=== PATIENT | female | born 1965 | race African-American/Black ===

== ENCOUNTER 2018-07-28 07:44 | Day surgery (SDC) | payer OTHER | END 2018-07-28 09:35 | disposition home or self-care (01) | LOC: JASU-SURG 07:44 ==

== ENCOUNTER 2020-09-23 16:38 | Inpatient (IN) | payer OTHER ==
[2020-09-23] MEDS ORDERED: SODIUM CHLORIDE 1,000 ML IV STA (19:03)
[2020-09-23] MEDS ORDERED: morphine CARPU-JECT 4 MG/1 ML DISP.SYRIN IVPUSH ONE (19:03)
[2020-09-23] MEDS ORDERED: ONDANSETRON 4 MG/2 ML VIAL IVPUSH ONE (19:03)
[2020-09-23] MEDS ORDERED: ONDANSETRON 4 MG/2 ML VIAL ONE (20:36)
[2020-09-23] MEDS ORDERED: morphine SULFATE 4 MG/ML VIAL ONE (20:36)
[2020-09-23 21:18] LABS: BASO % 0.9 % (0-2.0); EOS % 2.4 % (0-4.5); HEMATOCRIT 39.5 % (32.4-45.2); LYMPH % 38.5 % (8-40); MCH 28.7 pg (25.7-33.7); MCHC 32.8 g/dl (32.0-36.0); MEAN CELL VOLUME 87.4 fl (80-96); MEAN PLT VOLUME 9.6 fl (7.5-11.1); NEUT % 49.2 % (42.8-82.8); PLATELET COUNT 265 10^3/uL (134-434); RBC 4.52 M/mm3 (3.60-5.2); RDW 15.2 % (11.6-15.6); WHITE BLOOD COUNT 9.1 K/mm3 (4.0-10.0)
[2020-09-23 21:34] LABS: CHLORIDE 109 mmol/L (98-107); SODIUM 137 mmol/L (136-145)
[2020-09-23 21:38] LABS: ALBUMIN 3.8 g/dl (3.4-5.0); BLOOD UREA NITROGEN 12.6 mg/dL (7-18); CALCIUM 8.8 mg/dL (8.5-10.1); CO2 22 mmol/L (21-32); GLUCOSE,RANDOM 108 mg/dL (74-106); LIPASE 45 U/L (73-393); MAGNESIUM 2.2 mg/dL (1.8-2.4)
[2020-09-23 21:41] LABS: SGOT/AST 52 U/L (15-37)
[2020-09-23 21:43] LABS: BILIRUBIN,TOTAL 0.2 mg/dL (0.2-1); TOT PROT 8.7 g/dl (6.4-8.2)
[2020-09-23 21:44] LABS: ALK PHOS 133 U/L (45-117)
[2020-09-23 22:09] LABS: ANION GAP 5 MMOL/L (8-16); SGPT/ALT 33 U/L (13-61)
[2020-09-23 23:55] LABS: CALCIUM 8.8 mg/dL (8.5-10.1)
[2020-09-23 23:56] LABS: BLOOD UREA NITROGEN 11.5 mg/dL (7-18)
[2020-09-23 23:59] LABS: CREATININE 0.9 mg/dL (0.55-1.3)
[2020-09-24] MEDS: DEXTROSE 5%-NORMAL SALINE 1,000 ML IV SCH ×2 (01:35→21:01)
[2020-09-24 02:51] LABS: URINE APPEARANCE CLEAR; URINE BILIRUBIN NEGATIVE (NEGATIVE); URINE COLOR YELLOW; URINE GLUCOSE (UA) NEGATIVE (NEGATIVE); URINE KETONE TRACE (NEGATIVE); URINE LEUK ESTERASE NEGATIVE (NEGATIVE); URINE NITRITE NEGATIVE (NEGATIVE); URINE PROTEIN NEGATIVE (NEGATIVE)
[2020-09-24 05:11] VITALS: BMI 36.1
[2020-09-24 09:14] LABS: BASO % 0.7 % (0-2.0); EOS % 2.9 % (0-4.5); HEMATOCRIT 37.7 % (32.4-45.2); HEMOGLOBIN 12.5 GM/dL (10.7-15.3); LYMPH % 46.7 % (8-40); MCH 29.2 pg (25.7-33.7); MCHC 33.2 g/dl (32.0-36.0); MEAN PLT VOLUME 9.8 fl (7.5-11.1); NEUT % 40.7 % (42.8-82.8); PLATELET COUNT 243 10^3/uL (134-434); RBC 4.28 M/mm3 (3.60-5.2); RDW 15.3 % (11.6-15.6); WHITE BLOOD COUNT 6.6 K/mm3 (4.0-10.0)
[2020-09-24 09:21] LABS: INR 1.02 (0.83-1.09); PROTHROMBIN TIME (PATIENT) 12.5 SEC (9.7-13.0)
[2020-09-24 09:23] LABS: ACTIVATED PTT 30.3 SECONDS (25.2-36.5)
[2020-09-24 09:36] LABS: ALBUMIN 3.5 g/dl (3.4-5.0); CALCIUM 8.5 mg/dL (8.5-10.1)
[2020-09-24 09:37] LABS: BLOOD UREA NITROGEN 10.4 mg/dL (7-18)
[2020-09-24 09:40] LABS: CREATININE 0.7 mg/dL (0.55-1.3)
[2020-09-24 09:41] LABS: BILIRUBIN,TOTAL 0.2 mg/dL (0.2-1); TOT PROT 7.2 g/dl (6.4-8.2)
[2020-09-24] MEDS ORDERED: ALBUTEROL SO4 HFA INHALER IH PRN (10:00)
[2020-09-24] MEDS ORDERED: PT OWN MED DRAWER 7, Y5N ONE (10:39)
[2020-09-24] MEDS: TOPIRAMATE 25 MG TABLET PO SCH ×2 (11:01→21:02)
[2020-09-24] MEDS: BUDESONIDE/FORMETEROL FUMARATE 80/4.5 mcg INHALER IH SCH ×2 (11:02→21:01)
[2020-09-24] MEDS: MORPHINE SULFATE 2 MG/ML VIAL IVPUSH PRN ×2 (11:04→18:32)
[2020-09-24] MEDS: traZODone HCL 50 MG TABLET (FP) PO SCH (21:02)
[2020-09-25] MEDS: MORPHINE SULFATE 2 MG/ML VIAL IVPUSH PRN ×2 (06:22→11:57)
[2020-09-25] MEDS: DEXTROSE 5%-NORMAL SALINE 1,000 ML IV SCH ×2 (06:22→23:20)
[2020-09-25 09:11] LABS: BASO % 1.2 % (0-2.0); EOS % 3.4 % (0-4.5); HEMATOCRIT 38.5 % (32.4-45.2); HEMOGLOBIN 12.5 GM/dL (10.7-15.3); LYMPH % 44.9 % (8-40); MCH 28.7 pg (25.7-33.7); MCHC 32.4 g/dl (32.0-36.0); MEAN CELL VOLUME 88.7 fl (80-96); MEAN PLT VOLUME 10.7 fl (7.5-11.1); MONO % 7.8 % (3.8-10.2); NEUT % 42.7 % (42.8-82.8); PLATELET COUNT 223 10^3/uL (134-434); RBC 4.34 M/mm3 (3.60-5.2); RDW 15.4 % (11.6-15.6); WHITE BLOOD COUNT 6.3 K/mm3 (4.0-10.0)
[2020-09-25 09:23] LABS: CALCIUM 8.6 mg/dL (8.5-10.1)
[2020-09-25 09:26] LABS: CREATININE 0.8 mg/dL (0.55-1.3)
[2020-09-25] MEDS: ACETAMINOPHEN 325 MG TABLET (FP) PO PRN ×2 (10:05→19:48)
[2020-09-25] MEDS: BUDESONIDE/FORMETEROL FUMARATE 80/4.5 mcg INHALER IH SCH ×2 (10:06→21:14)
[2020-09-25] MEDS: TOPIRAMATE 25 MG TABLET PO SCH ×2 (10:06→21:13)
[2020-09-25] MEDS: clonazePAM 0.5 MG TABLET PO PRN (14:08)
[2020-09-25] MEDS: traZODone HCL 50 MG TABLET (FP) PO SCH (21:13)
[2020-09-26] MEDS: DEXTROSE 5%-NORMAL SALINE 1,000 ML IV SCH (02:33)
[2020-09-26] MEDS: MORPHINE SULFATE 2 MG/ML VIAL IVPUSH PRN ×3 (07:10→19:55)
[2020-09-26 07:49] LABS: HEMOGLOBIN 10.8 GM/dL (10.7-15.3); MCH 29.1 pg (25.7-33.7); MCHC 32.8 g/dl (32.0-36.0); MEAN CELL VOLUME 88.7 fl (80-96); MEAN PLT VOLUME 9.7 fl (7.5-11.1); PLATELET COUNT 215 10^3/uL (134-434); RBC 3.72 M/mm3 (3.60-5.2); RDW 15.6 % (11.6-15.6)
[2020-09-26] MEDS: TOPIRAMATE 25 MG TABLET PO SCH ×2 (09:45→21:59)
[2020-09-26] MEDS: BUDESONIDE/FORMETEROL FUMARATE 80/4.5 mcg INHALER IH SCH ×2 (09:45→21:55)
[2020-09-26] MEDS: clonazePAM 0.5 MG TABLET PO PRN (09:45)
[2020-09-26] MEDS ORDERED: BUPIVACAINE HCL/PF 0.5% (5MG/ML) 10 ML VIAL ONE (11:24)
[2020-09-26] MEDS ORDERED: PROPOFOL 20 ML ONE ×2 (11:29)
[2020-09-26] MEDS ORDERED: fentaNYL CITRATE 250 MCG/5 ML VIAL ONE (11:29)
[2020-09-26] MEDS ORDERED: KETOROLAC TROMETHAMINE 30 MG/1 ML VIAL ONE (11:29)
[2020-09-26] MEDS ORDERED: LIDOCAINE HCL/PF 2% SDV 5ML VIAL ONE (11:29)
[2020-09-26] MEDS ORDERED: DEXAMETHASONE SOD PHOSPHATE 4 MG/1 ML VIAL ONE (11:29)
[2020-09-26] MEDS ORDERED: ROCURONIUM BROMIDE 50 MG/5 ML SYRINGE ONE (11:30)
[2020-09-26] MEDS ORDERED: SUCCINYLCHOLINE CHLORIDE 200 MG/10 ML SYRINGE ONE (11:30)
[2020-09-26] MEDS ORDERED: MIDAZOLAM HCL 2 MG/2 ML SINGLE DOSE VIAL ONE (11:30)
[2020-09-26] MEDS: traZODone HCL 50 MG TABLET (FP) PO SCH (22:00)
[2020-09-27 06:11] VITALS: BP 132/73; PULSE 69; TEMP 97.8
[2020-09-27] MEDS: MORPHINE SULFATE 2 MG/ML VIAL IVPUSH PRN (06:37)
[2020-09-27] MEDS ORDERED: BISACODYL 10 MG SUPP.RECT PR ONE (08:43)
[2020-09-27 08:46] LABS: EOS % 2.4 % (0-4.5); HEMOGLOBIN 12.5 GM/dL (10.7-15.3); LYMPH % 42.9 % (8-40); MCH 29.4 pg (25.7-33.7); MEAN CELL VOLUME 89.2 fl (80-96); MEAN PLT VOLUME 10.1 fl (7.5-11.1); MONO % 7.9 % (3.8-10.2); NEUT % 45.8 % (42.8-82.8); PLATELET COUNT 245 10^3/uL (134-434); RBC 4.26 M/mm3 (3.60-5.2); RDW 14.9 % (11.6-15.6); WHITE BLOOD COUNT 6.4 K/mm3 (4.0-10.0)
[2020-09-27 09:04] LABS: MAGNESIUM 1.8 mg/dL (1.8-2.4)
[2020-09-27 09:07] LABS: CREATININE 0.9 mg/dL (0.55-1.3)
[2020-09-27 09:08] LABS: BILIRUBIN,TOTAL 0.2 mg/dL (0.2-1)
[2020-09-27 09:12] LABS: ALBUMIN 3.9 g/dl (3.4-5.0); TOT PROT 7.8 g/dl (6.4-8.2)
== END 2020-09-27 09:46 | disposition left against medical advice (07) ==
LOC: JER 16:38 → JERBED 23:10 → OBSVTOIN 23:10 → J6S 09-24 04:04
PROVIDERS: ADMIT Family Medicine; ATTEND Family Medicine
DX: K80.10 Calculus of gallbladder with chronic cholecystitis without obstruction (principal); J45.909 Unspecified asthma, uncomplicated; E66.9 Obesity, unspecified; F41.9 Anxiety disorder, unspecified; R07.9 Chest pain, unspecified; Z68.36 Body mass index [BMI] 36.0-36.9, adult
CPT/HCPCS: 36415; 71045-TC-FY; 71046-TC-FY; 76705-TC; 80048; 80053; 81003; 82550; 82553; 83690; 83735; 84484; 85025; 85027; 85610; 85730; 87086; 93005; 93010; 99285-25; C9803; U0003; U0005

== ENCOUNTER 2020-10-01 10:22 | Day surgery (SDC) | payer OTHER ==
[2020-10-01 12:23] VITALS: BMI 35.9
[2020-10-01] MEDS ORDERED: DEXAMETHASONE SOD PHOSPHATE 4 MG/1 ML VIAL ONE (16:31)
[2020-10-01] MEDS ORDERED: ONDANSETRON 4 MG/2 ML VIAL ONE (16:31)
[2020-10-01] MEDS ORDERED: LIDOCAINE HCL/PF 2% SDV 5ML VIAL ONE (16:31)
[2020-10-01] MEDS ORDERED: fentaNYL CITRATE 250 MCG/5 ML VIAL ONE (16:32)
[2020-10-01] MEDS ORDERED: MIDAZOLAM HCL 2 MG/2 ML SINGLE DOSE VIAL ONE (16:32)
[2020-10-01] MEDS ORDERED: PROPOFOL 20 ML ONE (16:32)
[2020-10-01] MEDS ORDERED: ROCURONIUM BROMIDE 50 MG/5 ML SYRINGE ONE (16:32)
[2020-10-01] MEDS ORDERED: LIDOCAINE HCL 2% JELLY (5 ML/TUBE) ONE (17:25)
[2020-10-01] MEDS ORDERED: ceFAZolin SODIUM 1 GM VIAL IVPB ONE (17:26)
[2020-10-01] MEDS ORDERED: ceFAZolin SODIUM 1 GM VIAL ONE (17:36)
[2020-10-01] MEDS ORDERED: BUPIVACAINE HCL/PF 0.5% (5 MG/ML) 30 ML VIAL IJ ONE ×2 (17:49)
[2020-10-01] MEDS ORDERED: GLYCOPYRROLATE 0.2 MG/1 ML VIAL ONE (18:19)
[2020-10-01] MEDS ORDERED: NEOSTIGMINE METHYLSULFATE 0.5 MG/1 ML - 10 ML MDV ONE (18:19)
[2020-10-01] MEDS ORDERED: ONDANSETRON 4 MG/2 ML VIAL IVPUSH PRN (18:29)
[2020-10-01] MEDS ORDERED: LACTATED RINGERS SOLUTION 1,000 ML IV SCH (18:30)
[2020-10-01] MEDS ORDERED: ACETAMINOPHEN 1000 MG/100 ML VIAL (NON FORMULARY) IVPB ONE (18:30)
[2020-10-01] MEDS ORDERED: KETOROLAC TROMETHAMINE 30 MG/1 ML VIAL IVPUSH PRN (18:43)
[2020-10-01] MEDS ORDERED: oxyCODONE HCL 5 MG TABLET PO PRN ×2 (18:53→18:54)
[2020-10-01] MEDS ORDERED: ACETAMINOPHEN INJECTION 100 ML IVPB ONE (19:23)
[2020-10-02] MEDS ORDERED: ACETAMINOPHEN 325 MG TABLET (FP) PO PRN (00:30)
[2020-10-02 07:39] VITALS: BP 156/87; PULSE 91; TEMP 98.4
== END 2020-10-02 07:00 | disposition home or self-care (01) ==
LOC: JASU-SURG 10:22 → JASUSAT 10:22 → J6S 21:22 → JASUSAT 10-02 07:00
PROVIDERS: ATTEND Surgery
PROC: 0FT44ZZ Resection of Gallbladder, Percutaneous Endoscopic Approach (ICD-10-PCS; principal; 2020-10-01 13:15)
DX: K80.10 Calculus of gallbladder with chronic cholecystitis without obstruction (principal)
CPT/HCPCS: 88304-TC; 94760; C9803; J0131; U0003; U0005

== ENCOUNTER 2021-06-19 12:22 | Observation (INO) | payer OTHER ==
[2021-06-19] MEDS ORDERED: ALBUTEROL SO4 2.5/IPRATROPIUM 0.5 INH SOL 3 ML VIAL.NEB. NEB ONE ×3 (13:32→22:37)
[2021-06-19] MEDS ORDERED: methylPREDNISolone NA SUCC 125 MG/2 ML VIAL IVPUSH ONE (13:56)
[2021-06-19] MEDS: ALBUTEROL SO4 2.5/IPRATROPIUM 0.5 INH SOL 3 ML VIAL.NEB. NEB SCH ×8 (14:00→20:30)
[2021-06-19] MEDS ORDERED: methylPREDNISolone NA SUCC 125 MG/2 ML VIAL ONE (14:23)
[2021-06-19] MEDS ORDERED: KETOROLAC TROMETHAMINE 30 MG/1 ML VIAL IVPUSH ONE (14:49)
[2021-06-19] MEDS ORDERED: CYCLOBENZAPRINE HCL 10 MG TABLET (FP) PO ONE (14:49)
[2021-06-19] MEDS ORDERED: CYCLOBENZAPRINE HCL 10 MG TABLET (FP) ONE (14:55)
[2021-06-19] MEDS ORDERED: KETOROLAC TROMETHAMINE 30 MG/1 ML VIAL ONE (14:56)
[2021-06-19 15:56] LABS: BASO % 0.7 % (0-2.0); EOS % 1.5 % (0-4.5); HEMATOCRIT 39.3 % (32.4-45.2); HEMOGLOBIN 12.7 GM/dL (10.7-15.3); LYMPH % 31.2 % (8-40); MCH 28.7 pg (25.7-33.7); MCHC 32.3 g/dl (32.0-36.0); MEAN CELL VOLUME 88.9 fl (80-96); MEAN PLT VOLUME 9.8 fl (7.5-11.1); MONO % 3.7 % (3.8-10.2); NEUT % 62.9 % (42.8-82.8); PLATELET COUNT 279 10^3/uL (134-434); RBC 4.43 M/mm3 (3.60-5.2); RDW 15.1 % (11.6-15.6); WHITE BLOOD COUNT 8.9 K/mm3 (4.0-10.0)
[2021-06-19 16:21] LABS: ALBUMIN 3.8 g/dl (3.4-5.0); BLOOD UREA NITROGEN 13.7 mg/dL (7-18); CALCIUM 9.1 mg/dL (8.5-10.1)
[2021-06-19 16:26] LABS: BILIRUBIN,TOTAL 0.2 mg/dL (0.2-1); TOT PROT 8.4 g/dl (6.4-8.2)
[2021-06-19] MEDS ORDERED: ASPIRIN 81 MG CHEWABLE TABLETS PO ONE (16:43)
[2021-06-19] MEDS ORDERED: ASPIRIN 81 MG CHEWABLE TABLETS ONE (17:08)
[2021-06-19] MEDS ORDERED: ACETAMINOPHEN 325 MG TABLET (FP) ONE (22:37)
[2021-06-19] MEDS ORDERED: ENOXAPARIN NA (PORCINE) 40 MG/0.4 ML DISP.SYRIN SQ ONE (22:38)
[2021-06-19] MEDS: ENOXAPARIN NA (PORCINE) 40 MG/0.4 ML DISP.SYRIN SQ SCH (22:45)
[2021-06-19] MEDS: ACETAMINOPHEN 325 MG TABLET (FP) PO PRN (22:46)
[2021-06-19] MEDS: INSULIN SLIDING SCALE (NOVOLOG) 1 VIAL SQ SCH (22:54)
[2021-06-20 03:40] VITALS: BMI 38.0
[2021-06-20] MEDS: INSULIN SLIDING SCALE (NOVOLOG) 1 VIAL SQ SCH ×4 (06:30→22:02)
[2021-06-20 07:53] LABS: BASO % 0.4 % (0-2.0); HEMATOCRIT 39.7 % (32.4-45.2); HEMOGLOBIN 12.8 GM/dL (10.7-15.3); MCH 28.4 pg (25.7-33.7); MCHC 32.4 g/dl (32.0-36.0); MEAN CELL VOLUME 87.8 fl (80-96); MEAN PLT VOLUME 10.2 fl (7.5-11.1); MONO % 3.5 % (3.8-10.2); NEUT % 82.1 % (42.8-82.8); PLATELET COUNT 292 10^3/uL (134-434); RBC 4.52 M/mm3 (3.60-5.2); RDW 15.4 % (11.6-15.6); WHITE BLOOD COUNT 10.4 K/mm3 (4.0-10.0)
[2021-06-20 08:08] LABS: CHOLESTEROL 284 mg/dL (50-200); TRIGLYCERIDES 78 mg/dL (0-150)
[2021-06-20 08:09] LABS: BLOOD UREA NITROGEN 16.5 mg/dL (7-18); LDL CHOLESTEROL (ONLY SJRH) 216 mg/dL (5-100)
[2021-06-20 08:10] LABS: CALCIUM 9.6 mg/dL (8.5-10.1); MAGNESIUM 2.3 mg/dL (1.8-2.4)
[2021-06-20 08:11] LABS: HDL CHOLESTEROL 46 mg/dL (40-60)
[2021-06-20 08:12] LABS: PHOSPHOROUS 2.7 mg/dL (2.5-4.9)
[2021-06-20 08:14] LABS: BILIRUBIN,TOTAL 0.3 mg/dL (0.2-1); TOT PROT 8.8 g/dl (6.4-8.2)
[2021-06-20] MEDS ORDERED: ALBUTEROL SO4 HFA INHALER IH PRN (10:00)
[2021-06-20] MEDS: CYCLOBENZAPRINE HCL 5 MG TABLET PO SCH (10:10)
[2021-06-20] MEDS: ENOXAPARIN NA (PORCINE) 40 MG/0.4 ML DISP.SYRIN SQ SCH (10:10)
[2021-06-20] MEDS: predniSONE 20 MG TABLET (UD) PO SCH (10:10)
[2021-06-20] MEDS ORDERED: ARIPiprazole 20 MG TABLET PO SCH (10:45)
[2021-06-20] MEDS: BUDESONIDE/FORMETEROL FUMARATE 80/4.5 mcg INHALER IH SCH (11:16)
[2021-06-20] MEDS: DULoxetine HCL 20 MG CAPSULE.DR PO SCH (11:16)
[2021-06-20 11:40] LABS: URINE APPEARANCE CLOUDY; URINE BILIRUBIN NEGATIVE (NEGATIVE); URINE COLOR YELLOW; URINE GLUCOSE (UA) NEGATIVE (NEGATIVE); URINE KETONE NEGATIVE (NEGATIVE); URINE LEUK ESTERASE NEGATIVE (NEGATIVE); URINE NITRITE NEGATIVE (NEGATIVE); URINE PROTEIN TRACE (NEGATIVE); URINE UROBILINOGEN 0.2 mg/dL (0.2-1.0)
[2021-06-20] MEDS ORDERED: FLUoxetine HCL 20 MG CAPSULE PO SCH (11:45)
[2021-06-20] MEDS: TOPIRAMATE 25 MG TABLET PO SCH ×2 (12:15→22:00)
[2021-06-20] MEDS: ARIPIPRAZOLE PO SCH (15:03)
[2021-06-20] MEDS: LIDOCAINE 5% TOPICAL PATCH TP SCH (16:49)
[2021-06-20] MEDS: ACETAMINOPHEN 325 MG TABLET (FP) PO PRN (19:24)
[2021-06-20] MEDS: traZODone HCL 50 MG TABLET (FP) PO SCH (22:00)
[2021-06-20] MEDS: LIDOCAINE PATCH REMOVAL MC SCH (22:00)
[2021-06-20] MEDS ORDERED: KETOROLAC TROMETHAMINE 15 MG/ML VIAL IVPUSH ONE (22:03)
[2021-06-21] MEDS: INSULIN SLIDING SCALE (NOVOLOG) 1 VIAL SQ SCH ×4 (06:47→21:59)
[2021-06-21 07:52] LABS: BASO % 0.8 % (0-2.0); EOS % 0.1 % (0-4.5); HEMATOCRIT 40.4 % (32.4-45.2); HEMOGLOBIN 12.8 GM/dL (10.7-15.3); MCH 28.3 pg (25.7-33.7); MCHC 31.6 g/dl (32.0-36.0); MEAN CELL VOLUME 89.6 fl (80-96); MEAN PLT VOLUME 10.8 fl (7.5-11.1); MONO % 8.2 % (3.8-10.2); NEUT % 63.9 % (42.8-82.8); PLATELET COUNT 214 10^3/uL (134-434); RBC 4.51 M/mm3 (3.60-5.2); RDW 15.8 % (11.6-15.6); WHITE BLOOD COUNT 12.6 K/mm3 (4.0-10.0)
[2021-06-21 09:09] LABS: ALBUMIN 3.6 g/dl (3.4-5.0); BILIRUBIN,TOTAL 0.4 mg/dL (0.2-1); BLOOD UREA NITROGEN 21.1 mg/dL (7-18); CALCIUM 8.8 mg/dL (8.5-10.1); MAGNESIUM 2.1 mg/dL (1.8-2.4)
[2021-06-21] MEDS ORDERED: cefTRIAXone SODIUM 1 GM VIAL ONE (09:33)
[2021-06-21] MEDS ORDERED: DEXTROSE 5%-WATER - 50 ML IVPB ONE (09:33)
[2021-06-21] MEDS: DULoxetine HCL 20 MG CAPSULE.DR PO SCH (09:38)
[2021-06-21] MEDS: ACETAMINOPHEN 325 MG TABLET (FP) PO PRN (09:38)
[2021-06-21] MEDS: ENOXAPARIN NA (PORCINE) 40 MG/0.4 ML DISP.SYRIN SQ SCH (09:38)
[2021-06-21] MEDS: CYCLOBENZAPRINE HCL 5 MG TABLET PO SCH (09:38)
[2021-06-21] MEDS: LIDOCAINE 5% TOPICAL PATCH TP SCH (09:39)
[2021-06-21] MEDS: BUDESONIDE/FORMETEROL FUMARATE 80/4.5 mcg INHALER IH SCH (09:40)
[2021-06-21] MEDS: TOPIRAMATE 25 MG TABLET PO SCH ×2 (09:44→22:00)
[2021-06-21] MEDS: ARIPIPRAZOLE PO SCH (09:44)
[2021-06-21] MEDS: predniSONE 20 MG TABLET (UD) PO SCH (09:52)
[2021-06-21] MEDS: AZITHROMYCIN IVPB 500 MG/250 ML BAG IVPB ONE ×2 (10:00→10:22)
[2021-06-21] MEDS ORDERED: CEFTRIAXONE 1 GM in DEXTROSE 5%-WATER - 50 ML IVPB SCH (10:00)
[2021-06-21] MEDS ORDERED: AZITHROMYCIN IVPB 250 MG in DEXTROSE 5%-WATER - 250 ML IVPB SCH (11:00)
[2021-06-21] MEDS: traZODone HCL 50 MG TABLET (FP) PO SCH (21:58)
[2021-06-21] MEDS ORDERED: methylPREDNISolone NA SUCC 40 MG/1 ML VIAL IVPUSH SCH (22:00)
[2021-06-21] MEDS: LIDOCAINE PATCH REMOVAL MC SCH (22:03)
[2021-06-22] MEDS: INSULIN SLIDING SCALE (NOVOLOG) 1 VIAL SQ SCH ×2 (06:53→11:32)
[2021-06-22 07:17] LABS: EOS % 0.3 % (0-4.5); HEMATOCRIT 39.8 % (32.4-45.2); HEMOGLOBIN 13.2 GM/dL (10.7-15.3); LYMPH % 50.7 % (8-40); MCH 28.9 pg (25.7-33.7); MCHC 33.1 g/dl (32.0-36.0); MEAN CELL VOLUME 87.3 fl (80-96); MONO % 6.5 % (3.8-10.2); NEUT % 41.5 % (42.8-82.8); PLATELET COUNT 243 10^3/uL (134-434); RBC 4.56 M/mm3 (3.60-5.2); RDW 15.4 % (11.6-15.6); WHITE BLOOD COUNT 10.4 K/mm3 (4.0-10.0)
[2021-06-22 07:40] LABS: BLOOD UREA NITROGEN 16.9 mg/dL (7-18); CALCIUM 8.8 mg/dL (8.5-10.1); MAGNESIUM 2.2 mg/dL (1.8-2.4)
[2021-06-22 07:41] LABS: ALBUMIN 3.8 g/dl (3.4-5.0)
[2021-06-22 07:43] LABS: CREATININE 0.9 mg/dL (0.55-1.3)
[2021-06-22 07:44] LABS: BILIRUBIN,TOTAL 0.2 mg/dL (0.2-1); TOT PROT 7.8 g/dl (6.4-8.2)
[2021-06-22] MEDS ORDERED: cefTRIAXone SODIUM 1 GM VIAL ONE (09:13)
[2021-06-22] MEDS ORDERED: DEXTROSE 5%-WATER - 50 ML IVPB ONE (09:13)
[2021-06-22] MEDS ORDERED: AMOX TR/POT CLAV 500MG/125MG TABLETS (FP) PO SCH (10:00)
[2021-06-22] MEDS ORDERED: predniSONE 20 MG TABLET (UD) PO SCH (10:00)
[2021-06-22 10:30] VITALS: BP 120/62; PULSE 88; TEMP 97.8
[2021-06-22] MEDS: DULoxetine HCL 20 MG CAPSULE.DR PO SCH (10:37)
[2021-06-22] MEDS: CYCLOBENZAPRINE HCL 5 MG TABLET PO SCH (10:37)
[2021-06-22] MEDS: ARIPIPRAZOLE PO SCH (10:37)
[2021-06-22] MEDS: LIDOCAINE 5% TOPICAL PATCH TP SCH (10:37)
[2021-06-22] MEDS: ENOXAPARIN NA (PORCINE) 40 MG/0.4 ML DISP.SYRIN SQ SCH (10:38)
[2021-06-22] MEDS: BUDESONIDE/FORMETEROL FUMARATE 80/4.5 mcg INHALER IH SCH (10:38)
[2021-06-22] MEDS: TOPIRAMATE 25 MG TABLET PO SCH (10:38)
[2021-06-23] MEDS ORDERED: AMOX TR/POT CLAV 500MG/125MG TABLETS (FP) PO SCH (08:00)
[2021-06-23] MEDS ORDERED: predniSONE 20 MG TABLET (UD) PO SCH (10:00)
== END 2021-06-22 12:45 | disposition home or self-care (01) ==
LOC: JER 12:22 → JERBED 18:39 → J4W 06-20 03:18
PROVIDERS: ADMIT Internal Medicine; ATTEND Nurse Practitioner Acute Care
PROC: 3E0F7GC Introduction of Other Therapeutic Substance into Respiratory Tract, Via Natural or Artificial Opening (ICD-10-PCS; principal; 2021-06-19)
PROC: 3E03329 Introduction of Other Anti-infective into Peripheral Vein, Percutaneous Approach (ICD-10-PCS; 2021-06-19)
PROC: 3E0333Z Introduction of Anti-inflammatory into Peripheral Vein, Percutaneous Approach (ICD-10-PCS; 2021-06-19)
PROC: 3E033GC Introduction of Other Therapeutic Substance into Peripheral Vein, Percutaneous Approach (ICD-10-PCS; 2021-06-19)
DX: J45.901 Unspecified asthma with (acute) exacerbation (principal); K80.80 Other cholelithiasis without obstruction; Z68.38 Body mass index [BMI] 38.0-38.9, adult; F17.210 Nicotine dependence, cigarettes, uncomplicated; E66.8 Other obesity; D72.829 Elevated white blood cell count, unspecified; Z29.8 Encounter for other specified prophylactic measures; Z88.8 Allergy status to other drugs, medicaments and biological substances
CPT/HCPCS: 36415; 71045-TC-FY; 71101-TC-LT-FY; 80053; 80061; 81003; 82962; 83036; 83735; 84100; 84484; 85025; 87086; 93005; 93010; 94640; 96365; 96367; 96375; 99285-25; C9803-CS; G0378; U0003; U0005

== ENCOUNTER 2021-10-01 11:16 | Inpatient (IN) | payer OTHER ==
[2021-10-01 11:39] VITALS: BMI 38.6
[2021-10-01] MEDS ORDERED: methylPREDNISolone NA SUCC 125 MG/2 ML VIAL IVPUSH ONE (13:10)
[2021-10-01] MEDS: ALBUTEROL SO4 2.5/IPRATROPIUM 0.5 INH SOL 3 ML VIAL.NEB. NEB SCH ×3 (13:26→14:04)
[2021-10-01] MEDS ORDERED: methylPREDNISolone NA SUCC 125 MG/2 ML VIAL ONE (14:29)
[2021-10-01] MEDS ORDERED: MAGNESIUM SULF 50% (8.12 MEQ/2 ML-1 GM VIAL) IVPB ONE (14:59)
[2021-10-01 15:29] LABS: BASO % 0.4 % (0-2.0); EOS % 2.7 % (0-4.5); HEMATOCRIT 36.8 % (32.4-45.2); HEMOGLOBIN 12.2 GM/dL (10.7-15.3); LYMPH % 43.1 % (8-40); MCH 28.4 pg (25.7-33.7); MCHC 33.2 g/dl (32.0-36.0); MEAN CELL VOLUME 85.4 fl (80-96); NEUT % 47.8 % (42.8-82.8); PLATELET COUNT 253 10^3/uL (134-434); RBC 4.31 M/mm3 (3.60-5.2); RDW 15.2 % (11.6-15.6); WHITE BLOOD COUNT 8.5 K/mm3 (4.0-10.0)
[2021-10-01] MEDS ORDERED: MAGNESIUM 1GM/D5W - 1 GM/100 ML IVPB IVPB ONE (15:39)
[2021-10-01 15:40] LABS: INR 1.09 (0.83-1.09); PROTHROMBIN TIME (PATIENT) 12.5 SEC (9.7-13.0)
[2021-10-01 15:42] LABS: ACTIVATED PTT 32.8 SECONDS (25.2-36.5)
[2021-10-01 15:56] LABS: CALCIUM 9.1 mg/dL (8.5-10.1)
[2021-10-01 15:57] LABS: ALBUMIN 3.6 g/dl (3.4-5.0); BLOOD UREA NITROGEN 12.1 mg/dL (7-18)
[2021-10-01 16:00] LABS: CREATININE 0.8 mg/dL (0.55-1.3)
[2021-10-01 16:02] LABS: BILIRUBIN,TOTAL 0.3 mg/dL (0.2-1); TOT PROT 7.7 g/dl (6.4-8.2)
[2021-10-01 16:42] LABS: N-TERMINAL BNP 153.1 pg/ml (5-125)
[2021-10-01] MEDS ORDERED: ALBUTEROL SO4 2.5/IPRATROPIUM 0.5 INH SOL 3 ML VIAL.NEB. NEB PRN (16:47)
[2021-10-01] MEDS ORDERED: ACETAMINOPHEN 325 MG TABLET (FP) PO PRN (16:47)
[2021-10-01] MEDS ORDERED: methylPREDNISolone NA SUCC 40 MG/1 ML VIAL IVPUSH SCH (18:00)
[2021-10-01] MEDS ORDERED: methylPREDNISolone NA SUCC 40 MG/1 ML VIAL ONE (22:50)
[2021-10-01] MEDS: methylPREDNISolone NA SUCC 40 MG/1 ML VIAL IVPUSH SCH (23:30)
[2021-10-01] MEDS: traZODone HCL 100 MG TABLET (FP) PO SCH (23:36)
[2021-10-01] MEDS: TOPIRAMATE 25 MG TABLET PO SCH (23:36)
[2021-10-02] MEDS: methylPREDNISolone NA SUCC 40 MG/1 ML VIAL IVPUSH SCH ×2 (01:30→18:29)
[2021-10-02] MEDS ORDERED: methylPREDNISolone NA SUCC 40 MG/1 ML VIAL IVPUSH SCH ×2 (10:00→10:30)
[2021-10-02] MEDS ORDERED: ALBUTEROL SO4 HFA INHALER IH PRN (10:00)
[2021-10-02] MEDS ORDERED: PATIENT'S OWN MEDICATION (NON-FORMULARY) (Mirabegron [Myrbetriq] 25 MG Tab.Er.24h) PO SCH (10:00)
[2021-10-02 10:27] LABS: BASO % 0.5 % (0-2.0); HEMATOCRIT 39.3 % (32.4-45.2); HEMOGLOBIN 12.7 GM/dL (10.7-15.3); LYMPH % 11.9 % (8-40); MCH 28.2 pg (25.7-33.7); MCHC 32.3 g/dl (32.0-36.0); MEAN CELL VOLUME 87.3 fl (80-96); MEAN PLT VOLUME 10.6 fl (7.5-11.1); MONO % 1.8 % (3.8-10.2); NEUT % 85.8 % (42.8-82.8); PLATELET COUNT 268 10^3/uL (134-434); RDW 15.5 % (11.6-15.6); WHITE BLOOD COUNT 11.3 K/mm3 (4.0-10.0)
[2021-10-02] MEDS ORDERED: AZITHROMYCIN IVPB 500 MG/250 ML BAG IVPB SCH (10:30)
[2021-10-02] MEDS: ALBUTEROL SO4 2.5/IPRATROPIUM 0.5 INH SOL 3 ML VIAL.NEB. NEB SCH ×4 (10:40→20:25)
[2021-10-02 10:58] LABS: BLOOD UREA NITROGEN 12.6 mg/dL (7-18); CALCIUM 9.3 mg/dL (8.5-10.1)
[2021-10-02] MEDS: OXYBUTYNIN CHLORIDE 5 MG TABLET PO SCH (10:58)
[2021-10-02] MEDS: CYCLOBENZAPRINE HCL 5 MG TABLET PO SCH (10:58)
[2021-10-02] MEDS: TOPIRAMATE 25 MG TABLET PO SCH ×2 (10:58→21:25)
[2021-10-02] MEDS: ENOXAPARIN NA (PORCINE) 40 MG/0.4 ML DISP.SYRIN SQ SCH (10:59)
[2021-10-02 11:02] LABS: CREATININE 1.1 mg/dL (0.55-1.3)
[2021-10-02] MEDS: DULoxetine HCL 20 MG CAPSULE.DR PO SCH (12:25)
[2021-10-02] MEDS: ARIPiprazole 10 MG TABLET PO SCH (12:25)
[2021-10-02] MEDS: BUDESONIDE/FORMETEROL FUMARATE 80/4.5 mcg INHALER IH SCH ×2 (12:28→21:25)
[2021-10-02] MEDS ORDERED: ASPIRIN 81 MG CHEWABLE TABLETS ONE (14:13)
[2021-10-02] MEDS ORDERED: ASPIRIN 81 MG CHEWABLE TABLETS PO ONE (14:24)
[2021-10-02 14:56] VITALS: RESP 20
[2021-10-02] MEDS ORDERED: traZODone HCL 50 MG TABLET (FP) ONE (21:22)
[2021-10-02] MEDS: traZODone HCL 100 MG TABLET (FP) PO SCH (21:24)
[2021-10-03] MEDS: methylPREDNISolone NA SUCC 40 MG/1 ML VIAL IVPUSH SCH ×3 (01:32→10:35)
[2021-10-03 07:54] VITALS: BP 145/78; PULSE 78; TEMP 98.2
[2021-10-03 07:59] LABS: HEMATOCRIT 36.9 % (32.4-45.2); HEMOGLOBIN 11.8 GM/dL (10.7-15.3); MCH 28.1 pg (25.7-33.7); MCHC 32.1 g/dl (32.0-36.0); MEAN CELL VOLUME 87.4 fl (80-96); MEAN PLT VOLUME 10.3 fl (7.5-11.1); PLATELET COUNT 229 10^3/uL (134-434); RBC 4.22 M/mm3 (3.60-5.2); WHITE BLOOD COUNT 14.7 K/mm3 (4.0-10.0)
[2021-10-03] MEDS: ALBUTEROL SO4 2.5/IPRATROPIUM 0.5 INH SOL 3 ML VIAL.NEB. NEB SCH ×2 (08:02→12:00)
[2021-10-03 08:19] LABS: ALBUMIN 3.4 g/dl (3.4-5.0); BLOOD UREA NITROGEN 16.7 mg/dL (7-18); CALCIUM 8.9 mg/dL (8.5-10.1)
[2021-10-03 08:22] LABS: CREATININE 0.9 mg/dL (0.55-1.3)
[2021-10-03 08:24] LABS: BILIRUBIN,TOTAL 0.2 mg/dL (0.2-1); TOT PROT 7.5 g/dl (6.4-8.2)
[2021-10-03] MEDS: CYCLOBENZAPRINE HCL 5 MG TABLET PO SCH (10:16)
[2021-10-03] MEDS: OXYBUTYNIN CHLORIDE 5 MG TABLET PO SCH (10:16)
[2021-10-03] MEDS: BUDESONIDE/FORMETEROL FUMARATE 80/4.5 mcg INHALER IH SCH (10:16)
[2021-10-03] MEDS: ENOXAPARIN NA (PORCINE) 40 MG/0.4 ML DISP.SYRIN SQ SCH (10:18)
[2021-10-03] MEDS ORDERED: predniSONE 20 MG TABLET (UD) PO ONE (10:43)
[2021-10-03] MEDS: ARIPiprazole 10 MG TABLET PO SCH (11:50)
[2021-10-03] MEDS: TOPIRAMATE 25 MG TABLET PO SCH (11:51)
[2021-10-03] MEDS: DULoxetine HCL 20 MG CAPSULE.DR PO SCH (11:51)
== END 2021-10-03 12:52 | disposition home or self-care (01) | DRG 140 ==
LOC: JER 11:16 → JERBED 17:03 → J7W 10-02 00:26
PROVIDERS: ADMIT Internal Medicine; ATTEND Internal Medicine
DX: J44.1 Chronic obstructive pulmonary disease with (acute) exacerbation (principal); J96.11 Chronic respiratory failure with hypoxia; F17.210 Nicotine dependence, cigarettes, uncomplicated; M75.01 Adhesive capsulitis of right shoulder; T36.3X5A Adverse effect of macrolides, initial encounter; Y92.89 Other specified places as the place of occurrence of the external cause; F25.9 Schizoaffective disorder, unspecified; M79.7 Fibromyalgia
CPT/HCPCS: 0241U-QW; 36415; 70450-TC; 71045-TC-FY; 80048; 80053; 82962; 83735; 83880; 84484; 85025; 85027; 85610; 85730; 93005; 93010; 94640; 99285-25

== ENCOUNTER 2021-10-16 10:44 | Inpatient (IN) | payer OTHER ==
[2021-10-16] MEDS ORDERED: ALBUTEROL SO4 2.5/IPRATROPIUM 0.5 INH SOL 3 ML VIAL.NEB. NEB ONE ×3 (10:51→16:39)
[2021-10-16] MEDS ORDERED: methylPREDNISolone NA SUCC 125 MG/2 ML VIAL IVPUSH ONE (11:06)
[2021-10-16] MEDS ORDERED: methylPREDNISolone NA SUCC 125 MG/2 ML VIAL ONE (11:31)
[2021-10-16] MEDS: ALBUTEROL SO4 2.5/IPRATROPIUM 0.5 INH SOL 3 ML VIAL.NEB. NEB SCH ×5 (11:31→19:14)
[2021-10-16 11:58] LABS: BASO % 0.7 % (0-2.0); EOS % 0.1 % (0-4.5); HEMATOCRIT 41.9 % (32.4-45.2); HEMOGLOBIN 13.7 GM/dL (10.7-15.3); LYMPH % 15.1 % (8-40); MCH 29.2 pg (25.7-33.7); MCHC 32.8 g/dl (32.0-36.0); MEAN PLT VOLUME 10.1 fl (7.5-11.1); MONO % 1.8 % (3.8-10.2); NEUT % 82.3 % (42.8-82.8); PLATELET COUNT 237 10^3/uL (134-434); RBC 4.71 M/mm3 (3.60-5.2); WHITE BLOOD COUNT 8.5 K/mm3 (4.0-10.0)
[2021-10-16 12:09] LABS: INR 0.97 (0.83-1.09); PROTHROMBIN TIME (PATIENT) 11.1 SEC (9.7-13.0)
[2021-10-16 12:20] LABS: CHLORIDE 93 mmol/L (98-107); SODIUM 129 mmol/L (136-145)
[2021-10-16 12:21] LABS: CALCIUM 9.7 mg/dL (8.5-10.1)
[2021-10-16 12:22] LABS: BLOOD UREA NITROGEN 15.7 mg/dL (7-18); CO2 27 mmol/L (21-32)
[2021-10-16 12:25] LABS: CREATININE 1.2 mg/dL (0.55-1.3); SGOT/AST 18 U/L (15-37); SGPT/ALT 59 U/L (13-61)
[2021-10-16 12:27] LABS: BILIRUBIN,TOTAL 0.3 mg/dL (0.2-1); TOT PROT 8.2 g/dl (6.4-8.2)
[2021-10-16 12:28] LABS: ALK PHOS 129 U/L (45-117)
[2021-10-16 12:30] LABS: ANION GAP 8 MMOL/L (8-16); GLUCOSE,RANDOM 684 mg/dL (74-106)
[2021-10-16] MEDS ORDERED: SODIUM CHLORIDE 0.9% 500 ML INFUS.BAG IV ONE (12:51)
[2021-10-16] MEDS ORDERED: ALBUTEROL SO4 2.5/IPRATROPIUM 0.5 INH SOL 3 ML VIAL.NEB. NEB PRN (15:14)
[2021-10-16] MEDS ORDERED: ALBUTEROL SO4 0.083% IH SOL 2.5 MG/3 ML VIAL.NEB. NEB PRN (15:51)
[2021-10-16] MEDS ORDERED: methylPREDNISolone NA SUCC 40 MG/1 ML VIAL ONE (16:39)
[2021-10-16] MEDS: methylPREDNISolone NA SUCC 40 MG/1 ML VIAL IVPUSH SCH (17:07)
[2021-10-16] MEDS: SODIUM CHLORIDE 1,000 ML IV SCH (17:07)
[2021-10-16 17:29] LABS: CHLORIDE 98 mmol/L (98-107); SODIUM 135 mmol/L (136-145)
[2021-10-16 17:32] LABS: CALCIUM 9.5 mg/dL (8.5-10.1)
[2021-10-16 17:33] LABS: ANION GAP 13 MMOL/L (8-16); BLOOD UREA NITROGEN 15.4 mg/dL (7-18); CO2 24 mmol/L (21-32)
[2021-10-16 17:36] LABS: CREATININE 1.5 mg/dL (0.55-1.3)
[2021-10-16 17:40] LABS: GLUCOSE,RANDOM 623 mg/dL (74-106)
[2021-10-16] MEDS ORDERED: ALBUTEROL SO4 0.083% IH SOL 2.5 MG/3 ML VIAL.NEB. NEB ONE (19:01)
[2021-10-16 19:58] LABS: CHLORIDE 101 mmol/L (98-107); SODIUM 134 mmol/L (136-145)
[2021-10-16 20:00] LABS: ANION GAP 13 MMOL/L (8-16); BLOOD UREA NITROGEN 17.8 mg/dL (7-18); CO2 20 mmol/L (21-32)
[2021-10-16 20:03] LABS: CREATININE 1.7 mg/dL (0.55-1.3)
[2021-10-16 20:11] LABS: CALCIUM 9.5 mg/dL (8.5-10.1); GLUCOSE,RANDOM 718 mg/dL (74-106)
[2021-10-16] MEDS: traZODone HCL 50 MG TABLET (FP) PO SCH (21:10)
[2021-10-16] MEDS: HEPARIN NA (PORCINE) 5,000 UNITS/ML 1ML VIAL SQ SCH (21:10)
[2021-10-16] MEDS: TOPIRAMATE 100 MG TABLET PO SCH (21:11)
[2021-10-16] MEDS: BUDESONIDE/FORMETEROL FUMARATE 160/4.5 mcg INHALER IH SCH (21:11)
[2021-10-16] MEDS: INSULIN SLIDING SCALE (NOVOLOG) 1 VIAL SQ SCH (21:11)
[2021-10-16] MEDS ORDERED: INSULIN (LEVEMIR) 100 UNITS/ML UNITS SQ SCH (22:00)
[2021-10-16 23:53] LABS: SODIUM 134 mmol/L (136-145)
[2021-10-17 00:14] LABS: ANION GAP 12 MMOL/L (8-16); BLOOD UREA NITROGEN 20.2 mg/dL (7-18); CALCIUM 9.3 mg/dL (8.5-10.1); CHLORIDE 100 mmol/L (98-107); CO2 22 mmol/L (21-32); CREATININE 1.4 mg/dL (0.55-1.3); GLUCOSE,RANDOM 524 mg/dL (74-106)
[2021-10-17] MEDS: methylPREDNISolone NA SUCC 40 MG/1 ML VIAL IVPUSH SCH ×3 (02:02→17:33)
[2021-10-17 03:10] VITALS: BMI 37.8
[2021-10-17] MEDS: INSULIN SLIDING SCALE (NOVOLOG) 1 VIAL SQ SCH ×5 (05:44→21:38)
[2021-10-17] MEDS: HEPARIN NA (PORCINE) 5,000 UNITS/ML 1ML VIAL SQ SCH ×3 (05:55→21:39)
[2021-10-17] MEDS: ALBUTEROL SO4 2.5/IPRATROPIUM 0.5 INH SOL 3 ML VIAL.NEB. NEB SCH ×4 (08:50→20:11)
[2021-10-17 09:42] LABS: BASO % 0.2 % (0-2.0); HEMATOCRIT 38.1 % (32.4-45.2); HEMOGLOBIN 12.6 GM/dL (10.7-15.3); MCH 28.8 pg (25.7-33.7); MCHC 33.1 g/dl (32.0-36.0); MEAN PLT VOLUME 10.6 fl (7.5-11.1); MONO % 3.5 % (3.8-10.2); NEUT % 87.3 % (42.8-82.8); PLATELET COUNT 207 10^3/uL (134-434); RBC 4.39 M/mm3 (3.60-5.2); RDW 15.5 % (11.6-15.6)
[2021-10-17 09:58] LABS: CALCIUM 9.5 mg/dL (8.5-10.1)
[2021-10-17] MEDS ORDERED: DULoxetine HCL 20 MG CAPSULE.DR PO SCH (10:00)
[2021-10-17] MEDS ORDERED: TOPIRAMATE 100 MG TABLET PO SCH (10:00)
[2021-10-17] MEDS ORDERED: DULoxetine HCL 60 MG CAPSULE.DR PO SCH (10:00)
[2021-10-17 10:01] LABS: CREATININE 1.3 mg/dL (0.55-1.3)
[2021-10-17 10:10] LABS: BLOOD UREA NITROGEN 16.3 mg/dL (7-18)
[2021-10-17] MEDS: NICOTINE 14 MG/24 HOURS TOPICAL PATCH TD SCH (10:12)
[2021-10-17] MEDS: TOPIRAMATE 25 MG TABLET PO SCH (10:13)
[2021-10-17] MEDS: BENZTROPINE MESYLATE 0.5 MG TABLET (FP) PO SCH (10:15)
[2021-10-17] MEDS: ARIPiprazole 10 MG TABLET PO SCH (10:15)
[2021-10-17] MEDS: SOLIFENACIN SUCCINATE 5 MG TAB PO SCH (10:15)
[2021-10-17] MEDS: BUDESONIDE/FORMETEROL FUMARATE 160/4.5 mcg INHALER IH SCH ×2 (10:16→21:38)
[2021-10-17] MEDS: DULOXETINE PO SCH (10:16)
[2021-10-17] MEDS: SODIUM CHLORIDE 1,000 ML IV SCH (17:25)
[2021-10-17] MEDS: traZODone HCL 50 MG TABLET (FP) PO SCH (21:36)
[2021-10-17] MEDS: TOPIRAMATE 100 MG TABLET PO SCH (21:36)
[2021-10-17] MEDS: INSULIN (LEVEMIR) 100 UNITS/ML UNITS SQ SCH (21:37)
[2021-10-18] MEDS: SODIUM CHLORIDE 1,000 ML IV SCH ×2 (00:07→17:28)
[2021-10-18] MEDS: methylPREDNISolone NA SUCC 40 MG/1 ML VIAL IVPUSH SCH ×3 (01:55→17:34)
[2021-10-18] MEDS: HEPARIN NA (PORCINE) 5,000 UNITS/ML 1ML VIAL SQ SCH ×3 (06:31→22:22)
[2021-10-18] MEDS: INSULIN SLIDING SCALE (NOVOLOG) 1 VIAL SQ SCH ×4 (06:31→22:27)
[2021-10-18] MEDS: ALBUTEROL SO4 2.5/IPRATROPIUM 0.5 INH SOL 3 ML VIAL.NEB. NEB SCH ×4 (07:32→20:32)
[2021-10-18] MEDS: NICOTINE 14 MG/24 HOURS TOPICAL PATCH TD SCH (10:59)
[2021-10-18] MEDS: BENZTROPINE MESYLATE 0.5 MG TABLET (FP) PO SCH (11:00)
[2021-10-18] MEDS: ARIPiprazole 10 MG TABLET PO SCH (11:00)
[2021-10-18] MEDS: PANTOPRAZOLE 40 MG TABLET PO SCH (11:01)
[2021-10-18] MEDS: DULOXETINE PO SCH (11:01)
[2021-10-18] MEDS: SOLIFENACIN SUCCINATE 5 MG TAB PO SCH ×2 (11:02→17:36)
[2021-10-18] MEDS: BUDESONIDE/FORMETEROL FUMARATE 160/4.5 mcg INHALER IH SCH ×2 (11:02→22:25)
[2021-10-18] MEDS: TOPIRAMATE 25 MG TABLET PO SCH (11:02)
[2021-10-18] MEDS: INSULIN (LEVEMIR) 100 UNITS/ML UNITS SQ SCH ×2 (11:03→22:26)
[2021-10-18] MEDS: traZODone HCL 50 MG TABLET (FP) PO SCH (22:21)
[2021-10-19] MEDS: TOPIRAMATE 100 MG TABLET PO SCH ×2 (01:26→21:45)
[2021-10-19] MEDS: methylPREDNISolone NA SUCC 40 MG/1 ML VIAL IVPUSH SCH ×3 (01:26→17:08)
[2021-10-19] MEDS: HEPARIN NA (PORCINE) 5,000 UNITS/ML 1ML VIAL SQ SCH ×3 (06:12→21:40)
[2021-10-19] MEDS: INSULIN (LEVEMIR) 100 UNITS/ML UNITS SQ SCH ×2 (06:15→21:40)
[2021-10-19] MEDS: INSULIN SLIDING SCALE (NOVOLOG) 1 VIAL SQ SCH ×2 (06:16→12:39)
[2021-10-19] MEDS: ALBUTEROL SO4 2.5/IPRATROPIUM 0.5 INH SOL 3 ML VIAL.NEB. NEB SCH ×4 (08:22→19:42)
[2021-10-19] MEDS: NICOTINE 14 MG/24 HOURS TOPICAL PATCH TD SCH (10:34)
[2021-10-19] MEDS: SOLIFENACIN SUCCINATE 5 MG TAB PO SCH (10:34)
[2021-10-19] MEDS: PANTOPRAZOLE 40 MG TABLET PO SCH (10:34)
[2021-10-19] MEDS: ARIPiprazole 10 MG TABLET PO SCH (10:35)
[2021-10-19] MEDS: DULOXETINE PO SCH (10:35)
[2021-10-19 10:36] LABS: HEMATOCRIT 39.4 % (32.4-45.2); HEMOGLOBIN 12.7 GM/dL (10.7-15.3); MCH 28.5 pg (25.7-33.7); MCHC 32.3 g/dl (32.0-36.0); MEAN CELL VOLUME 88.3 fl (80-96); MEAN PLT VOLUME 10.8 fl (7.5-11.1); PLATELET COUNT 178 10^3/uL (134-434); RBC 4.46 M/mm3 (3.60-5.2); RDW 15.9 % (11.6-15.6); WHITE BLOOD COUNT 10.2 K/mm3 (4.0-10.0)
[2021-10-19] MEDS: TOPIRAMATE 25 MG TABLET PO SCH (10:36)
[2021-10-19 10:37] LABS: CALCIUM 9.3 mg/dL (8.5-10.1)
[2021-10-19 10:38] LABS: ALBUMIN 3.6 g/dl (3.4-5.0); MAGNESIUM 2.1 mg/dL (1.8-2.4)
[2021-10-19 10:41] LABS: CREATININE 1.1 mg/dL (0.55-1.3)
[2021-10-19 10:42] LABS: TOT PROT 7.2 g/dl (6.4-8.2)
[2021-10-19 10:43] LABS: BILIRUBIN,TOTAL 0.4 mg/dL (0.2-1)
[2021-10-19] MEDS: BENZTROPINE MESYLATE 0.5 MG TABLET (FP) PO SCH (10:45)
[2021-10-19] MEDS: BUDESONIDE/FORMETEROL FUMARATE 160/4.5 mcg INHALER IH SCH ×2 (10:45→21:50)
[2021-10-19] MEDS ORDERED: INSULIN (NOVOLOG MIX 70/30) 100 UNITS/ML MDV SQ SCH (11:36)
[2021-10-19 13:04] LABS: ANISOCYTOSIS 0; MACROCYTOSIS 0
[2021-10-19] MEDS: INSULIN (NOVOLOG MIX 70/30) 100 UNITS/ML MDV SQ SCH (15:55)
[2021-10-19] MEDS: PATIENT'S OWN MEDICATION (NON-FORMULARY) (Mirabegron [Myrbetriq] 25 MG Tab.Er.24h) PO SCH ×2 (19:38→19:39)
[2021-10-19] MEDS: traZODone HCL 50 MG TABLET (FP) PO SCH (21:40)
[2021-10-20] MEDS: methylPREDNISolone NA SUCC 40 MG/1 ML VIAL IVPUSH SCH ×3 (02:03→21:52)
[2021-10-20] MEDS: HEPARIN NA (PORCINE) 5,000 UNITS/ML 1ML VIAL SQ SCH ×3 (06:19→21:52)
[2021-10-20] MEDS: INSULIN (NOVOLOG MIX 70/30) 100 UNITS/ML MDV SQ SCH ×3 (06:20→16:35)
[2021-10-20] MEDS: INSULIN (LEVEMIR) 100 UNITS/ML UNITS SQ SCH ×2 (06:20→23:26)
[2021-10-20] MEDS: ALBUTEROL SO4 2.5/IPRATROPIUM 0.5 INH SOL 3 ML VIAL.NEB. NEB SCH ×4 (08:22→19:22)
[2021-10-20 09:36] LABS: BASO % 0.3 % (0-2.0); HEMATOCRIT 39.4 % (32.4-45.2); LYMPH % 13.4 % (8-40); MCH 28.9 pg (25.7-33.7); MEAN CELL VOLUME 87.5 fl (80-96); MEAN PLT VOLUME 10.7 fl (7.5-11.1); MONO % 3.8 % (3.8-10.2); NEUT % 82.5 % (42.8-82.8); PLATELET COUNT 170 10^3/uL (134-434); RDW 15.9 % (11.6-15.6); WHITE BLOOD COUNT 7.4 K/mm3 (4.0-10.0)
[2021-10-20 10:12] LABS: CALCIUM 9.2 mg/dL (8.5-10.1)
[2021-10-20 10:13] LABS: ALBUMIN 3.6 g/dl (3.4-5.0); BLOOD UREA NITROGEN 18.6 mg/dL (7-18); MAGNESIUM 2.3 mg/dL (1.8-2.4)
[2021-10-20] MEDS: NICOTINE 14 MG/24 HOURS TOPICAL PATCH TD SCH (10:14)
[2021-10-20] MEDS: TOPIRAMATE 25 MG TABLET PO SCH (10:15)
[2021-10-20] MEDS: BENZTROPINE MESYLATE 0.5 MG TABLET (FP) PO SCH (10:15)
[2021-10-20] MEDS: PANTOPRAZOLE 40 MG TABLET PO SCH (10:16)
[2021-10-20] MEDS: SOLIFENACIN SUCCINATE 5 MG TAB PO SCH (10:16)
[2021-10-20 10:17] LABS: TOT PROT 7.2 g/dl (6.4-8.2)
[2021-10-20] MEDS: ARIPiprazole 10 MG TABLET PO SCH (10:17)
[2021-10-20 10:18] LABS: BILIRUBIN,TOTAL 0.5 mg/dL (0.2-1)
[2021-10-20] MEDS: FLUTICASONE/UMECLIDIN/VILANTER(200-62.5-25 TRELEGY ELLIPTA) INAHLER IH SCH (10:18)
[2021-10-20] MEDS: ASPIRIN 325 MG TABLET PO SCH (10:28)
[2021-10-20] MEDS: DULOXETINE PO SCH (11:04)
[2021-10-20] MEDS: DULoxetine HCL 20 MG CAPSULE.DR PO SCH (11:28)
[2021-10-20] MEDS ORDERED: INSULIN (NOVOLOG) ASPART 100 UNITS/ML 10ML VIAL SQ ONE (13:52)
[2021-10-20] MEDS: LOSARTAN POTASSIUM 25 MG TABLET PO SCH (16:25)
[2021-10-20] MEDS: INSULIN SLIDING SCALE (NOVOLOG) 1 VIAL SQ SCH ×2 (16:36→23:26)
[2021-10-20] MEDS: traZODone HCL 50 MG TABLET (FP) PO SCH (21:52)
[2021-10-20] MEDS: TOPIRAMATE 100 MG TABLET PO SCH (21:59)
[2021-10-21] MEDS: HEPARIN NA (PORCINE) 5,000 UNITS/ML 1ML VIAL SQ SCH ×3 (06:39→21:40)
[2021-10-21] MEDS: INSULIN SLIDING SCALE (NOVOLOG) 1 VIAL SQ SCH ×4 (07:03→21:39)
[2021-10-21] MEDS: INSULIN (LEVEMIR) 100 UNITS/ML UNITS SQ SCH ×2 (07:03→21:39)
[2021-10-21] MEDS: INSULIN (NOVOLOG MIX 70/30) 100 UNITS/ML MDV SQ SCH ×3 (07:03→16:01)
[2021-10-21] MEDS: ALBUTEROL SO4 2.5/IPRATROPIUM 0.5 INH SOL 3 ML VIAL.NEB. NEB SCH ×4 (07:45→20:07)
[2021-10-21] MEDS: PANTOPRAZOLE 40 MG TABLET PO SCH (09:05)
[2021-10-21] MEDS: ASPIRIN 325 MG TABLET PO SCH (09:05)
[2021-10-21] MEDS: NICOTINE 14 MG/24 HOURS TOPICAL PATCH TD SCH (09:05)
[2021-10-21] MEDS: LOSARTAN POTASSIUM 25 MG TABLET PO SCH (09:05)
[2021-10-21] MEDS: DULoxetine HCL 20 MG CAPSULE.DR PO SCH (09:05)
[2021-10-21] MEDS: methylPREDNISolone NA SUCC 40 MG/1 ML VIAL IVPUSH SCH ×2 (09:07→21:40)
[2021-10-21] MEDS: TOPIRAMATE 25 MG TABLET PO SCH (09:07)
[2021-10-21] MEDS: ARIPiprazole 10 MG TABLET PO SCH (09:07)
[2021-10-21] MEDS: BENZTROPINE MESYLATE 0.5 MG TABLET (FP) PO SCH (09:07)
[2021-10-21] MEDS: FLUTICASONE/UMECLIDIN/VILANTER(200-62.5-25 TRELEGY ELLIPTA) INAHLER IH SCH (09:08)
[2021-10-21] MEDS: SOLIFENACIN SUCCINATE 5 MG TAB PO SCH (09:08)
[2021-10-21 09:48] LABS: BASO % 0.6 % (0-2.0); EOS % 0.1 % (0-4.5); HEMATOCRIT 40.2 % (32.4-45.2); HEMOGLOBIN 12.9 GM/dL (10.7-15.3); LYMPH % 27.4 % (8-40); MCH 28.4 pg (25.7-33.7); MEAN CELL VOLUME 88.7 fl (80-96); MEAN PLT VOLUME 11.4 fl (7.5-11.1); NEUT % 66.9 % (42.8-82.8); PLATELET COUNT 145 10^3/uL (134-434); RBC 4.54 M/mm3 (3.60-5.2); RDW 15.8 % (11.6-15.6); WHITE BLOOD COUNT 8.6 K/mm3 (4.0-10.0)
[2021-10-21 10:11] LABS: ALBUMIN 3.4 g/dl (3.4-5.0); CALCIUM 8.9 mg/dL (8.5-10.1); MAGNESIUM 2.1 mg/dL (1.8-2.4)
[2021-10-21 10:16] LABS: BILIRUBIN,TOTAL 0.5 mg/dL (0.2-1); TOT PROT 6.9 g/dl (6.4-8.2)
[2021-10-21] MEDS: traZODone HCL 50 MG TABLET (FP) PO SCH (21:39)
[2021-10-21] MEDS: TOPIRAMATE 100 MG TABLET PO SCH (21:40)
[2021-10-22] MEDS: HEPARIN NA (PORCINE) 5,000 UNITS/ML 1ML VIAL SQ SCH ×3 (06:15→22:56)
[2021-10-22] MEDS: INSULIN SLIDING SCALE (NOVOLOG) 1 VIAL SQ SCH ×4 (06:19→23:09)
[2021-10-22] MEDS: INSULIN (LEVEMIR) 100 UNITS/ML UNITS SQ SCH ×2 (06:19→22:56)
[2021-10-22] MEDS: INSULIN (NOVOLOG MIX 70/30) 100 UNITS/ML MDV SQ SCH ×3 (06:21→17:13)
[2021-10-22] MEDS: ALBUTEROL SO4 2.5/IPRATROPIUM 0.5 INH SOL 3 ML VIAL.NEB. NEB SCH ×4 (07:30→20:08)
[2021-10-22] MEDS: DULoxetine HCL 20 MG CAPSULE.DR PO SCH (10:13)
[2021-10-22] MEDS: ARIPiprazole 10 MG TABLET PO SCH (10:13)
[2021-10-22] MEDS: NICOTINE 14 MG/24 HOURS TOPICAL PATCH TD SCH (10:13)
[2021-10-22] MEDS: TOPIRAMATE 25 MG TABLET PO SCH (10:13)
[2021-10-22] MEDS: ASPIRIN 325 MG TABLET PO SCH (10:13)
[2021-10-22] MEDS: methylPREDNISolone NA SUCC 40 MG/1 ML VIAL IVPUSH SCH (10:13)
[2021-10-22] MEDS: PANTOPRAZOLE 40 MG TABLET PO SCH (10:13)
[2021-10-22] MEDS: SOLIFENACIN SUCCINATE 5 MG TAB PO SCH (10:14)
[2021-10-22] MEDS: FLUTICASONE/UMECLIDIN/VILANTER(200-62.5-25 TRELEGY ELLIPTA) INAHLER IH SCH (10:14)
[2021-10-22] MEDS: LOSARTAN POTASSIUM 25 MG TABLET PO SCH (10:14)
[2021-10-22] MEDS: BENZTROPINE MESYLATE 0.5 MG TABLET (FP) PO SCH (10:14)
[2021-10-22 10:40] LABS: BASO % 0.2 % (0-2.0); HEMATOCRIT 37.5 % (32.4-45.2); HEMOGLOBIN 12.2 GM/dL (10.7-15.3); MCH 28.7 pg (25.7-33.7); MCHC 32.5 g/dl (32.0-36.0); MEAN CELL VOLUME 88.3 fl (80-96); MEAN PLT VOLUME 10.1 fl (7.5-11.1); MONO % 6.9 % (3.8-10.2); NEUT % 62.9 % (42.8-82.8); PLATELET COUNT 133 10^3/uL (134-434); RBC 4.24 M/mm3 (3.60-5.2); WHITE BLOOD COUNT 8.5 K/mm3 (4.0-10.0)
[2021-10-22 11:09] LABS: CALCIUM 8.8 mg/dL (8.5-10.1)
[2021-10-22 11:10] LABS: ALBUMIN 3.2 g/dl (3.4-5.0); BLOOD UREA NITROGEN 23.8 mg/dL (7-18); MAGNESIUM 2.1 mg/dL (1.8-2.4)
[2021-10-22 11:13] LABS: CREATININE 0.9 mg/dL (0.55-1.3)
[2021-10-22 11:14] LABS: BILIRUBIN,TOTAL 0.4 mg/dL (0.2-1); TOT PROT 6.4 g/dl (6.4-8.2)
[2021-10-22] MEDS ORDERED: INSULIN (LEVEMIR) 100 UNITS/ML UNITS SQ ONE (22:31)
[2021-10-22] MEDS: traZODone HCL 50 MG TABLET (FP) PO SCH (22:56)
[2021-10-22] MEDS: TOPIRAMATE 100 MG TABLET PO SCH (23:02)
[2021-10-23] MEDS: HEPARIN NA (PORCINE) 5,000 UNITS/ML 1ML VIAL SQ SCH ×3 (05:55→14:02)
[2021-10-23] MEDS: INSULIN (LEVEMIR) 100 UNITS/ML UNITS SQ SCH ×2 (06:01→23:06)
[2021-10-23] MEDS: INSULIN (NOVOLOG MIX 70/30) 100 UNITS/ML MDV SQ SCH ×3 (06:01→16:51)
[2021-10-23] MEDS: INSULIN SLIDING SCALE (NOVOLOG) 1 VIAL SQ SCH ×4 (06:01→23:11)
[2021-10-23 08:10] LABS: BASO % 0.5 % (0-2.0); EOS % 0.3 % (0-4.5); HEMATOCRIT 39.4 % (32.4-45.2); HEMOGLOBIN 12.6 GM/dL (10.7-15.3); LYMPH % 47.4 % (8-40); MEAN CELL VOLUME 87.5 fl (80-96); MEAN PLT VOLUME 9.9 fl (7.5-11.1); MONO % 5.5 % (3.8-10.2); NEUT % 46.3 % (42.8-82.8); PLATELET COUNT 153 10^3/uL (134-434); RBC 4.51 M/mm3 (3.60-5.2); WHITE BLOOD COUNT 11.2 K/mm3 (4.0-10.0)
[2021-10-23 08:27] LABS: BLOOD UREA NITROGEN 22.4 mg/dL (7-18); CALCIUM 8.7 mg/dL (8.5-10.1); MAGNESIUM 2.1 mg/dL (1.8-2.4)
[2021-10-23 08:28] LABS: ALBUMIN 3.2 g/dl (3.4-5.0)
[2021-10-23 08:32] LABS: BILIRUBIN,TOTAL 0.4 mg/dL (0.2-1); TOT PROT 6.5 g/dl (6.4-8.2)
[2021-10-23] MEDS: ALBUTEROL SO4 2.5/IPRATROPIUM 0.5 INH SOL 3 ML VIAL.NEB. NEB SCH ×4 (08:51→20:05)
[2021-10-23] MEDS ORDERED: ATROPINE SULFATE 1 MG/10 ML DISP.SYRIN ONE (12:25)
[2021-10-23] MEDS ORDERED: ATROPINE SULFATE 1 MG/10 ML DISP.SYRIN IVPUSH ONE (12:45)
[2021-10-23] MEDS: LOSARTAN POTASSIUM 25 MG TABLET PO SCH (13:48)
[2021-10-23] MEDS: BENZTROPINE MESYLATE 0.5 MG TABLET (FP) PO SCH (13:48)
[2021-10-23] MEDS: SOLIFENACIN SUCCINATE 5 MG TAB PO SCH (13:48)
[2021-10-23] MEDS: PANTOPRAZOLE 40 MG TABLET PO SCH (13:48)
[2021-10-23] MEDS: ASPIRIN 325 MG TABLET PO SCH (13:48)
[2021-10-23] MEDS: ARIPiprazole 10 MG TABLET PO SCH (13:49)
[2021-10-23] MEDS: DULoxetine HCL 20 MG CAPSULE.DR PO SCH (13:49)
[2021-10-23] MEDS: NICOTINE 14 MG/24 HOURS TOPICAL PATCH TD SCH (13:50)
[2021-10-23] MEDS: TOPIRAMATE 25 MG TABLET PO SCH (13:52)
[2021-10-23] MEDS ORDERED: INSULIN (NOVOLOG) ASPART 100 UNITS/ML 10ML VIAL ONE (14:03)
[2021-10-23] MEDS: FLUTICASONE/UMECLIDIN/VILANTER(200-62.5-25 TRELEGY ELLIPTA) INAHLER IH SCH (14:13)
[2021-10-23] MEDS: methylPREDNISolone NA SUCC 40 MG/1 ML VIAL IVPUSH SCH (14:21)
[2021-10-23] MEDS ORDERED: POLYETHYLENE GLYCOL (HEALTHYLAX) 3350 17 GM PACKET PO ONE (18:15)
[2021-10-23] MEDS ORDERED: INSULIN (LEVEMIR) 100 UNITS/ML UNITS SQ ONE (22:24)
[2021-10-23] MEDS: POLYETHYLENE GLYCOL (HEALTHYLAX) 3350 17 GM PACKET PO SCH (23:05)
[2021-10-23] MEDS: traZODone HCL 50 MG TABLET (FP) PO SCH (23:05)
[2021-10-23] MEDS: DOCUSATE SODIUM 100 MG CAPSULE (FP) PO SCH (23:05)
[2021-10-23] MEDS: TOPIRAMATE 100 MG TABLET PO SCH (23:05)
[2021-10-24] MEDS ORDERED: INSULIN (NOVOLOG MIX 70/30) 100 UNITS/ML MDV SQ ONE ×2 (06:31→17:18)
[2021-10-24] MEDS: INSULIN (LEVEMIR) 100 UNITS/ML UNITS SQ SCH ×2 (06:52→22:27)
[2021-10-24] MEDS: INSULIN (NOVOLOG MIX 70/30) 100 UNITS/ML MDV SQ SCH ×3 (06:52→17:09)
[2021-10-24] MEDS: INSULIN SLIDING SCALE (NOVOLOG) 1 VIAL SQ SCH ×4 (06:53→22:30)
[2021-10-24] MEDS: ALBUTEROL SO4 2.5/IPRATROPIUM 0.5 INH SOL 3 ML VIAL.NEB. NEB SCH ×3 (07:51→15:29)
[2021-10-24] MEDS: ASPIRIN 325 MG TABLET PO SCH (10:25)
[2021-10-24] MEDS: predniSONE 20 MG TABLET (UD) PO SCH (10:25)
[2021-10-24] MEDS: PANTOPRAZOLE 40 MG TABLET PO SCH (10:25)
[2021-10-24] MEDS: ARIPiprazole 10 MG TABLET PO SCH (10:26)
[2021-10-24] MEDS: NICOTINE 14 MG/24 HOURS TOPICAL PATCH TD SCH (10:26)
[2021-10-24] MEDS: POLYETHYLENE GLYCOL (HEALTHYLAX) 3350 17 GM PACKET PO SCH ×2 (10:26→22:35)
[2021-10-24] MEDS: BENZTROPINE MESYLATE 0.5 MG TABLET (FP) PO SCH (10:26)
[2021-10-24] MEDS: SOLIFENACIN SUCCINATE 5 MG TAB PO SCH (10:26)
[2021-10-24] MEDS: DULoxetine HCL 20 MG CAPSULE.DR PO SCH (10:27)
[2021-10-24] MEDS: LOSARTAN POTASSIUM 25 MG TABLET PO SCH (10:28)
[2021-10-24] MEDS: FLUTICASONE/UMECLIDIN/VILANTER(200-62.5-25 TRELEGY ELLIPTA) INAHLER IH SCH (10:29)
[2021-10-24] MEDS: TOPIRAMATE 25 MG TABLET PO SCH (10:29)
[2021-10-24] MEDS ORDERED: MAGNESIUM CITRATE 300 ML BOTTLE PO PRN (10:56)
[2021-10-24] MEDS ORDERED: LACTULOSE 20 GM/30 ML UDC (FOR ORAL USE ONLY) PO ONE (10:56)
[2021-10-24] MEDS ORDERED: INSULIN (NOVOLOG) ASPART 100 UNITS/ML 10ML VIAL ONE (17:18)
[2021-10-24] MEDS ORDERED: INSULIN (LEVEMIR) 100 UNITS/ML UNITS SQ ONE (17:18)
[2021-10-24] MEDS: traZODone HCL 50 MG TABLET (FP) PO SCH (22:26)
[2021-10-24] MEDS: TOPIRAMATE 100 MG TABLET PO SCH (22:29)
[2021-10-24] MEDS: DOCUSATE SODIUM 100 MG CAPSULE (FP) PO SCH (22:35)
[2021-10-25] MEDS: INSULIN (LEVEMIR) 100 UNITS/ML UNITS SQ SCH ×2 (07:01→22:26)
[2021-10-25] MEDS: INSULIN SLIDING SCALE (NOVOLOG) 1 VIAL SQ SCH ×4 (07:05→22:27)
[2021-10-25 08:06] VITALS: RESP 18
[2021-10-25] MEDS ORDERED: INSULIN (NOVOLOG MIX 70/30) 100 UNITS/ML MDV SQ ONE (08:58)
[2021-10-25] MEDS: INSULIN (NOVOLOG MIX 70/30) 100 UNITS/ML MDV SQ SCH ×3 (09:04→16:52)
[2021-10-25] MEDS: POLYETHYLENE GLYCOL (HEALTHYLAX) 3350 17 GM PACKET PO SCH ×2 (09:05→22:26)
[2021-10-25] MEDS: DULoxetine HCL 20 MG CAPSULE.DR PO SCH (09:06)
[2021-10-25] MEDS: predniSONE 20 MG TABLET (UD) PO SCH (09:06)
[2021-10-25] MEDS: ARIPiprazole 10 MG TABLET PO SCH (09:06)
[2021-10-25] MEDS: PANTOPRAZOLE 40 MG TABLET PO SCH (09:06)
[2021-10-25] MEDS: NICOTINE 14 MG/24 HOURS TOPICAL PATCH TD SCH (09:06)
[2021-10-25] MEDS: ASPIRIN 325 MG TABLET PO SCH (09:07)
[2021-10-25] MEDS: TOPIRAMATE 25 MG TABLET PO SCH (09:07)
[2021-10-25] MEDS: LOSARTAN POTASSIUM 25 MG TABLET PO SCH (09:07)
[2021-10-25] MEDS: SOLIFENACIN SUCCINATE 5 MG TAB PO SCH (09:07)
[2021-10-25] MEDS: BENZTROPINE MESYLATE 0.5 MG TABLET (FP) PO SCH (09:07)
[2021-10-25] MEDS: FLUTICASONE/UMECLIDIN/VILANTER(200-62.5-25 TRELEGY ELLIPTA) INAHLER IH SCH (09:14)
[2021-10-25 09:32] LABS: BASO % 0.7 % (0-2.0); EOS % 0.3 % (0-4.5); HEMATOCRIT 37.7 % (32.4-45.2); LYMPH % 31.2 % (8-40); MCH 28.2 pg (25.7-33.7); MCHC 31.9 g/dl (32.0-36.0); MEAN CELL VOLUME 88.3 fl (80-96); MEAN PLT VOLUME 10.7 fl (7.5-11.1); MONO % 5.9 % (3.8-10.2); NEUT % 61.9 % (42.8-82.8); PLATELET COUNT 161 10^3/uL (134-434); RBC 4.27 M/mm3 (3.60-5.2); RDW 15.3 % (11.6-15.6); WHITE BLOOD COUNT 12.2 K/mm3 (4.0-10.0)
[2021-10-25 09:59] LABS: ALBUMIN 3.2 g/dl (3.4-5.0); CALCIUM 8.6 mg/dL (8.5-10.1)
[2021-10-25 10:00] LABS: BLOOD UREA NITROGEN 22.7 mg/dL (7-18); MAGNESIUM 2.2 mg/dL (1.8-2.4)
[2021-10-25 10:01] LABS: CREATININE 0.9 mg/dL (0.55-1.3)
[2021-10-25 10:02] LABS: TOT PROT 6.4 g/dl (6.4-8.2)
[2021-10-25 10:03] LABS: BILIRUBIN,TOTAL 0.3 mg/dL (0.2-1)
[2021-10-25] MEDS: traZODone HCL 50 MG TABLET (FP) PO SCH (22:25)
[2021-10-25] MEDS: DOCUSATE SODIUM 100 MG CAPSULE (FP) PO SCH (22:26)
[2021-10-25] MEDS: TOPIRAMATE 100 MG TABLET PO SCH (22:29)
[2021-10-26] MEDS: INSULIN (LEVEMIR) 100 UNITS/ML UNITS SQ SCH (07:01)
[2021-10-26] MEDS: INSULIN SLIDING SCALE (NOVOLOG) 1 VIAL SQ SCH ×3 (07:02→17:13)
[2021-10-26 08:22] LABS: BASO % 0.6 % (0-2.0); EOS % 0.4 % (0-4.5); HEMATOCRIT 34.3 % (32.4-45.2); HEMOGLOBIN 11.4 GM/dL (10.7-15.3); LYMPH % 42.4 % (8-40); MCH 29.1 pg (25.7-33.7); MCHC 33.1 g/dl (32.0-36.0); MEAN CELL VOLUME 88.1 fl (80-96); MEAN PLT VOLUME 10.2 fl (7.5-11.1); NEUT % 49.6 % (42.8-82.8); PLATELET COUNT 128 10^3/uL (134-434); RDW 15.6 % (11.6-15.6); WHITE BLOOD COUNT 9.7 K/mm3 (4.0-10.0)
[2021-10-26 08:28] LABS: ALBUMIN 3.1 g/dl (3.4-5.0); BLOOD UREA NITROGEN 18.9 mg/dL (7-18); CALCIUM 8.9 mg/dL (8.5-10.1); MAGNESIUM 2.2 mg/dL (1.8-2.4)
[2021-10-26 08:32] LABS: CREATININE 0.8 mg/dL (0.55-1.3)
[2021-10-26 08:34] LABS: BILIRUBIN,TOTAL 0.2 mg/dL (0.2-1); TOT PROT 6.1 g/dl (6.4-8.2)
[2021-10-26] MEDS: INSULIN (NOVOLOG MIX 70/30) 100 UNITS/ML MDV SQ SCH ×3 (09:12→17:13)
[2021-10-26] MEDS: DULoxetine HCL 20 MG CAPSULE.DR PO SCH (10:13)
[2021-10-26] MEDS: SOLIFENACIN SUCCINATE 5 MG TAB PO SCH (10:13)
[2021-10-26] MEDS: NICOTINE 14 MG/24 HOURS TOPICAL PATCH TD SCH (10:13)
[2021-10-26] MEDS: POLYETHYLENE GLYCOL (HEALTHYLAX) 3350 17 GM PACKET PO SCH (10:13)
[2021-10-26] MEDS: ASPIRIN 325 MG TABLET PO SCH (10:13)
[2021-10-26] MEDS: BENZTROPINE MESYLATE 0.5 MG TABLET (FP) PO SCH (10:13)
[2021-10-26] MEDS: PANTOPRAZOLE 40 MG TABLET PO SCH (10:14)
[2021-10-26] MEDS: LOSARTAN POTASSIUM 25 MG TABLET PO SCH (10:14)
[2021-10-26] MEDS: predniSONE 20 MG TABLET (UD) PO SCH (10:14)
[2021-10-26] MEDS: ARIPiprazole 10 MG TABLET PO SCH (10:14)
[2021-10-26] MEDS: TOPIRAMATE 25 MG TABLET PO SCH (10:15)
[2021-10-26] MEDS: FLUTICASONE/UMECLIDIN/VILANTER(200-62.5-25 TRELEGY ELLIPTA) INAHLER IH SCH (10:17)
[2021-10-26 14:55] VITALS: BP 105/56; TEMP 97.9
[2021-10-26 15:00] VITALS: PULSE 94
== END 2021-10-26 17:50 | disposition home or self-care (01) | DRG 140 ==
LOC: JER 10:44 → JERBED 13:08 → J7W 10-17 00:38
PROVIDERS: ADMIT Internal Medicine; ATTEND Nurse Practitioner Acute Care
DX: J44.1 Chronic obstructive pulmonary disease with (acute) exacerbation (principal); R00.0 Tachycardia, unspecified; D64.9 Anemia, unspecified; R73.9 Hyperglycemia, unspecified; F17.210 Nicotine dependence, cigarettes, uncomplicated; J96.20 Acute and chronic respiratory failure, unspecified whether with hypoxia or hypercapnia; E87.5 Hyperkalemia; E66.9 Obesity, unspecified; Z68.38 Body mass index [BMI] 38.0-38.9, adult; R91.8 Other nonspecific abnormal finding of lung field; G47.33 Obstructive sleep apnea (adult) (pediatric); R07.89 Other chest pain; K80.20 Calculus of gallbladder without cholecystitis without obstruction
CPT/HCPCS: 0241U-QW; 36415; 71045-TC-FY; 71250-TC; 78452-TC; 80048; 80053; 82947; 82962; 83036; 83735; 84484; 85025; 85379; 85610; 85730; 93005; 93010; 93017; 93306-TC; 94010; 94640; 94761; 97116-GP; 99285-25; A9502; J1644

== ENCOUNTER 2021-11-01 05:35 | Emergency (ER) | payer OTHER ==
[2021-11-01 06:16] VITALS: RESP 18; BMI 36.6
[2021-11-01 06:53] LABS: BASO % 1.5 % (0-2.0); EOS % 1.5 % (0-4.5); HEMATOCRIT 39.3 % (32.4-45.2); HEMOGLOBIN 12.3 GM/dL (10.7-15.3); LYMPH % 25.7 % (8-40); MCHC 31.2 g/dl (32.0-36.0); MEAN CELL VOLUME 89.7 fl (80-96); MEAN PLT VOLUME 10.7 fl (7.5-11.1); MONO % 6.8 % (3.8-10.2); NEUT % 64.5 % (42.8-82.8); PLATELET COUNT 196 10^3/uL (134-434); RBC 4.38 M/mm3 (3.60-5.2); RDW 15.8 % (11.6-15.6); WHITE BLOOD COUNT 8.3 K/mm3 (4.0-10.0)
[2021-11-01 07:13] LABS: CHLORIDE 104 mmol/L (98-107); SODIUM 138 mmol/L (136-145)
[2021-11-01 07:15] LABS: ALBUMIN 3.2 g/dl (3.4-5.0); BLOOD UREA NITROGEN 9.6 mg/dL (7-18); CALCIUM 9.6 mg/dL (8.5-10.1); CO2 28 mmol/L (21-32)
[2021-11-01 07:18] LABS: CREATININE 0.9 mg/dL (0.55-1.3); SGOT/AST 27 U/L (15-37); SGPT/ALT 61 U/L (13-61)
[2021-11-01 07:20] LABS: BILIRUBIN,TOTAL 0.3 mg/dL (0.2-1); TOT PROT 6.9 g/dl (6.4-8.2)
[2021-11-01] MEDS ORDERED: ACETAMINOPHEN 325 MG TABLET (FP) PO ONE (07:20)
[2021-11-01] MEDS ORDERED: KETOROLAC TROMETHAMINE 30 MG/1 ML VIAL IVPUSH ONE (07:20)
[2021-11-01 07:21] LABS: ALK PHOS 104 U/L (45-117)
[2021-11-01 07:25] LABS: ANION GAP 7 MMOL/L (8-16); GLUCOSE,RANDOM 511 mg/dL (74-106)
[2021-11-01] MEDS ORDERED: SODIUM CHLORIDE 1,000 ML IV STA (07:34)
[2021-11-01] MEDS ORDERED: Insulin (LOG) Aspart 100 UNITS/ML VIAL SQ ONE (07:37)
[2021-11-01] MEDS ORDERED: KETOROLAC TROMETHAMINE 30 MG/1 ML VIAL ONE (07:40)
[2021-11-01] MEDS ORDERED: ACETAMINOPHEN 325 MG TABLET (FP) ONE (07:40)
[2021-11-01 08:49] LABS: URINE APPEARANCE CLEAR; URINE BILIRUBIN NEGATIVE (NEGATIVE); URINE COLOR YELLOW; URINE GLUCOSE (UA) 3+ (NEGATIVE); URINE KETONE NEGATIVE (NEGATIVE); URINE LEUK ESTERASE NEGATIVE (NEGATIVE); URINE NITRITE NEGATIVE (NEGATIVE); URINE PROTEIN NEGATIVE (NEGATIVE); URINE UROBILINOGEN 0.2 mg/dL (0.2-1.0)
[2021-11-01 09:27] LABS: CALCIUM 9.7 mg/dL (8.5-10.1)
[2021-11-01 09:28] LABS: BLOOD UREA NITROGEN 8.4 mg/dL (7-18)
[2021-11-01 09:31] LABS: CREATININE 0.8 mg/dL (0.55-1.3)
[2021-11-01 10:08] VITALS: BP 140/79; PULSE 77; TEMP 98.1
[2021-11-01] MEDS ORDERED: Insulin (LOG) Aspart 100 UNITS/ML VIAL SQ SCH (16:30)
== END 2021-11-01 10:36 | disposition home or self-care (01) ==
LOC: JER 05:35
PROC: 3E033GC Introduction of Other Therapeutic Substance into Peripheral Vein, Percutaneous Approach (ICD-10-PCS; principal; 2021-11-01)
PROC: 3E023GC Introduction of Other Therapeutic Substance into Muscle, Percutaneous Approach (ICD-10-PCS; principal; 2021-11-01)
DX: R07.9 Chest pain, unspecified (principal)
CPT/HCPCS: 36415; 71045-TC-FY; 80048; 80053; 81003; 82962; 84484; 85025; 87086; 93005; 93010; 99285-25

== ENCOUNTER 2022-09-18 14:47 | Observation (INO) | payer OTHER ==
[2022-09-18] MEDS ORDERED: ACETAMINOPHEN 1000 MG/100 ML BAG IVPB ONE (15:27)
[2022-09-18] MEDS ORDERED: MAG HYDROX/AL HYDROX/SIMETH 30 ML UNIT-DOSE CUP PO ONE (15:27)
[2022-09-18] MEDS ORDERED: FAMOTIDINE 20 MG/50 ML IVPB 20 MG/50 ML MG IVPB ONE ×2 (15:27→16:08)
[2022-09-18] MEDS ORDERED: ASPIRIN 81 MG CHEWABLE TABLETS PO ONE (16:01)
[2022-09-18] MEDS ORDERED: ALBUTEROL SO4 2.5/IPRATROPIUM 0.5 INH SOL 3 ML VIAL.NEB. NEB ONE ×4 (16:01→18:54)
[2022-09-18] MEDS ORDERED: MAG HYDROX/AL HYDROX/SIMETH 30 ML UNIT-DOSE CUP ONE (16:08)
[2022-09-18] MEDS ORDERED: ACETAMINOPHEN INJECTION 100 ML IVPB ONE (16:08)
[2022-09-18] MEDS ORDERED: ASPIRIN 81 MG CHEWABLE TABLETS ONE (16:09)
[2022-09-18 16:10] LABS: VENOUS BASE EXCESS -6.8 mmol/L (-2-2); VENOUS O2 SATURATION 68.7 % (70-80); VENOUS PH 7.318 (7.310-7.410)
[2022-09-18 16:28] LABS: POTASSIUM 3.9 mmol/L (3.5-5.1)
[2022-09-18 16:31] LABS: ALBUMIN 3.9 g/dl (3.4-5.0); BLOOD UREA NITROGEN 15.9 mg/dL (7-18)
[2022-09-18 16:36] LABS: BILIRUBIN,TOTAL 0.1 mg/dL (0.2-1); TOT PROT 8.1 g/dl (6.4-8.2)
[2022-09-18 16:39] LABS: N-TERMINAL BNP 40.6 pg/ml (5-125)
[2022-09-18] MEDS ORDERED: methylPREDNISolone NA SUCC 125 MG/2 ML VIAL IVPUSH ONE (16:47)
[2022-09-18] MEDS ORDERED: methylPREDNISolone NA SUCC 125 MG/2 ML VIAL ONE (17:42)
[2022-09-18 17:46] LABS: BASO % 0.9 % (0-2.0); EOS % 3.3 % (0-4.5); HEMATOCRIT 39.7 % (32.4-45.2); HEMOGLOBIN 13.2 GM/dL (10.7-15.3); LYMPH % 36.2 % (8-40); MCH 28.4 pg (25.7-33.7); MCHC 33.2 g/dl (32.0-36.0); MEAN CELL VOLUME 85.4 fl (80-96); MEAN PLT VOLUME 10.5 fl (7.5-11.1); MONO % 6.6 % (3.8-10.2); PLATELET COUNT 196 10^3/uL (134-434); RBC 4.65 M/mm3 (3.60-5.2); RDW 14.6 % (11.6-15.6); WHITE BLOOD COUNT 8.8 K/mm3 (4.0-10.0)
[2022-09-18] MEDS ORDERED: CEFTRIAXONE 1 GM in DEXTROSE 5%-WATER - 100 ML IVPB ONE (18:13)
[2022-09-18] MEDS ORDERED: DOXYCYCLINE INJECTION 100 MG in DEXTROSE 5%-WATER 100 ML IVPB ONE (18:14)
[2022-09-18] MEDS ORDERED: SUCRALFATE 1 GM TABLET (FP) PO ONE (18:47)
[2022-09-18] MEDS ORDERED: SUCRALFATE 1 GM TABLET (FP) ONE (18:54)
[2022-09-18] MEDS ORDERED: CEFTRIAXONE 1 GM/50 ML BAG ONE (18:55)
[2022-09-18] MEDS ORDERED: DOXYCYCLINE HYCLATE 100 MG VIAL ONE (18:55)
[2022-09-18] MEDS ORDERED: traZODone HCL 100 MG TABLET (FP) ONE (21:47)
[2022-09-18] MEDS ORDERED: BENZTROPINE MESYLATE 0.5 MG TABLET (FP) PO SCH (22:00)
[2022-09-18] MEDS ORDERED: traZODone HCL 100 MG TABLET (FP) PO SCH (22:00)
[2022-09-18] MEDS ORDERED: ALBUTEROL SO4 0.042% IH SOL 1.25 MG/3 ML VIAL.NEB NEB PRN (22:50)
[2022-09-19 01:59] VITALS: BMI 38.0
[2022-09-19] MEDS ORDERED: methylPREDNISolone NA SUCC 40 MG/1 ML VIAL IVPUSH SCH (02:00)
[2022-09-19] MEDS: DOXYCYCLINE INJECTION 100 MG in DEXTROSE 5%-WATER 100 ML IVPB SCH ×2 (05:24→09:36)
[2022-09-19] MEDS ORDERED: NICOTINE POLACRILEX 2 MG GUM BUC PRN (05:58)
[2022-09-19] MEDS: INSULIN SLIDING SCALE (NOVOLOG) 1 VIAL SQ SCH ×2 (06:17→11:28)
[2022-09-19] MEDS ORDERED: MAG HYDROX/AL HYDROX/SIMETH 30 ML UNIT-DOSE CUP PO ONE (07:00)
[2022-09-19] MEDS ORDERED: ALBUTEROL SO4 2.5/IPRATROPIUM 0.5 INH SOL 3 ML VIAL.NEB. NEB SCH (08:00)
[2022-09-19] MEDS: ALBUTEROL SO4 2.5/IPRATROPIUM 0.5 INH SOL 3 ML VIAL.NEB. NEB SCH ×2 (08:09→11:45)
[2022-09-19 09:32] LABS: BASO % 0.5 % (0-2.0); HEMATOCRIT 40.7 % (32.4-45.2); HEMOGLOBIN 13.3 GM/dL (10.7-15.3); LYMPH % 18.6 % (8-40); MCH 28.4 pg (25.7-33.7); MCHC 32.6 g/dl (32.0-36.0); MEAN CELL VOLUME 87.3 fl (80-96); MEAN PLT VOLUME 11.7 fl (7.5-11.1); MONO % 3.2 % (3.8-10.2); NEUT % 77.7 % (42.8-82.8); PLATELET COUNT 209 10^3/uL (134-434); RBC 4.67 M/mm3 (3.60-5.2); RDW 14.8 % (11.6-15.6); WHITE BLOOD COUNT 5.6 K/mm3 (4.0-10.0)
[2022-09-19 09:50] LABS: POTASSIUM 4.7 mmol/L (3.5-5.1)
[2022-09-19 09:54] VITALS: RESP 18
[2022-09-19 09:54] LABS: ALBUMIN 3.6 g/dl (3.4-5.0); CALCIUM 8.8 mg/dL (8.5-10.1)
[2022-09-19 09:55] LABS: BLOOD UREA NITROGEN 10.4 mg/dL (7-18)
[2022-09-19 09:58] LABS: PHOSPHOROUS 2.8 mg/dL (2.5-4.9)
[2022-09-19 09:59] LABS: BILIRUBIN,TOTAL 0.2 mg/dL (0.2-1)
[2022-09-19 10:00] LABS: TOT PROT 7.6 g/dl (6.4-8.2)
[2022-09-19] MEDS ORDERED: TOPIRAMATE 100 MG TABLET PO SCH (10:00)
[2022-09-19] MEDS ORDERED: ENOXAPARIN NA (PORCINE) 40 MG/0.4 ML DISP.SYRIN SQ SCH (10:00)
[2022-09-19] MEDS ORDERED: ARIPiprazole 10 MG TABLET PO SCH (10:00)
[2022-09-19] MEDS ORDERED: DULoxetine HCL 30 MG CAPSULE.DR PO SCH (10:00)
[2022-09-19] MEDS ORDERED: CEFTRIAXONE 1 GM in DEXTROSE 5%-WATER - 50 ML IVPB SCH (10:00)
[2022-09-19] MEDS ORDERED: NICOTINE 21 MG/24 HOURS TOPICAL PATCH TD SCH (10:00)
[2022-09-19] MEDS ORDERED: FAMOTIDINE 20 MG TABLET PO SCH (10:00)
[2022-09-19] MEDS ORDERED: PANTOPRAZOLE 40 MG TABLET PO SCH (10:00)
[2022-09-19 10:38] LABS: HIV INTERPRETATION NEGATIVE (NEGATIVE)
[2022-09-19] MEDS ORDERED: INSULIN SLIDING SCALE (NOVOLOG) 1 VIAL SQ ONE (11:27)
[2022-09-19] MEDS ORDERED: AZITHROMYCIN 250 MG TABLET PO ONE (11:40)
[2022-09-19] MEDS ORDERED: predniSONE 20 MG TABLET (UD) PO ONE (12:00)
[2022-09-19] MEDS ORDERED: FLUTICASONE/UMECLIDIN/VILANTER(200-62.5-25 TRELEGY ELLIPTA) INAHLER IH SCH (13:30)
[2022-09-19 14:25] VITALS: BP 135/80; TEMP 98
[2022-09-19] MEDS ORDERED: MONTELUKAST NA 10 MG TABLET PO SCH (22:00)
[2022-09-22 13:34] VITALS: PULSE 76
== END 2022-09-19 15:18 | disposition home or self-care (01) ==
LOC: JER 14:47 → JERBED 18:16 → UNDOADMOB 18:16 → OBSVTOIN 22:43 → INTOOBSV 22:43 → JERBED 22:49 → J4S 22:49 → JERBED 22:59
PROVIDERS: ADMIT Internal Medicine; ATTEND Internal Medicine
PROC: 3E033NZ Introduction of Analgesics, Hypnotics, Sedatives into Peripheral Vein, Percutaneous Approach (ICD-10-PCS; principal; 2022-09-18)
PROC: 3E0F7GC Introduction of Other Therapeutic Substance into Respiratory Tract, Via Natural or Artificial Opening (ICD-10-PCS; 2022-09-18)
PROC: 3E03329 Introduction of Other Anti-infective into Peripheral Vein, Percutaneous Approach (ICD-10-PCS; 2022-09-18)
PROC: 3E013VG Introduction of Insulin into Subcutaneous Tissue, Percutaneous Approach (ICD-10-PCS; 2022-09-18)
DX: M35.1 Other overlap syndromes (principal); J44.1 Chronic obstructive pulmonary disease with (acute) exacerbation; G24.9 Dystonia, unspecified; R91.1 Solitary pulmonary nodule; Z88.8 Allergy status to other drugs, medicaments and biological substances; F17.200 Nicotine dependence, unspecified, uncomplicated
CPT/HCPCS: 0241U-QW; 36415; 71045-TC-FY; 71260-TC; 74177-TC; 80053; 82803; 82962; 83036; 83690; 83735; 83880; 84100; 84484; 85025; 87389; 93005; 93010; 94150; 94640; 96365; 96366; 96367; 96372; 96374; 96375; 99285-25; G0378; Q9967

== ENCOUNTER 2023-05-31 13:05 | Inpatient (IN) | payer OTHER ==
[2023-05-31] MEDS ORDERED: ALBUTEROL SO4 2.5/IPRATROPIUM 0.5 INH SOL 3 ML VIAL.NEB. NEB ONE (13:46)
[2023-05-31] MEDS: ALBUTEROL SO4 2.5/IPRATROPIUM 0.5 INH SOL 3 ML VIAL.NEB. NEB SCH ×2 (14:05→20:35)
[2023-05-31 14:12] LABS: BASO % 0.9 % (0-2.0); EOS % 1.2 % (0-4.5); HEMATOCRIT 39.6 % (32.4-45.2); LYMPH % 36.9 % (8-40); MCH 28.5 pg (25.7-33.7); MCHC 32.7 g/dl (32.0-36.0); MEAN CELL VOLUME 86.9 fl (80-96); MEAN PLT VOLUME 9.9 fl (7.5-11.1); MONO % 8.5 % (3.8-10.2); NEUT % 52.5 % (42.8-82.8); PLATELET COUNT 260 10^3/uL (134-434); RBC 4.56 M/mm3 (3.60-5.2); RDW 15.2 % (11.6-15.6); VENOUS BASE EXCESS -1.7 mmol/L (-2-2); VENOUS O2 SATURATION 74.2 % (70-80); VENOUS PCO2 50.2 mmHg (38-52); VENOUS PH 7.316 (7.310-7.410); WHITE BLOOD COUNT 8.6 K/mm3 (4.0-10.0)
[2023-05-31 14:37] LABS: ACTIVATED PTT 30.6 SECONDS (25.2-36.5); INR 1.08 (0.83-1.09); PROTHROMBIN TIME (PATIENT) 12.5 SEC (9.7-13.0)
[2023-05-31 15:04] LABS: POTASSIUM 4.7 mmol/L (3.5-5.1)
[2023-05-31 15:10] LABS: CALCIUM 9.3 mg/dL (8.5-10.1)
[2023-05-31 15:12] LABS: ALBUMIN 3.6 g/dl (3.4-5.0); BLOOD UREA NITROGEN 13.7 mg/dL (7-18)
[2023-05-31 15:15] LABS: CREATININE 0.9 mg/dL (0.55-1.3)
[2023-05-31 15:16] LABS: BILIRUBIN,TOTAL 0.4 mg/dL (0.2-1); TOT PROT 7.7 g/dl (6.4-8.2)
[2023-05-31] MEDS ORDERED: MAGNESIUM 1GM/D5W - 1 GM/100 ML IVPB IVPB ONE (18:12)
[2023-05-31] MEDS ORDERED: ALBUTEROL SO4 0.083% IH SOL 2.5 MG/3 ML VIAL.NEB. NEB ONE (18:12)
[2023-05-31] MEDS: ALBUTEROL SO4 0.083% IH SOL 2.5 MG/3 ML VIAL.NEB. NEB SCH (18:15)
[2023-05-31] MEDS ORDERED: NICOTINE 14 MG/24 HOURS TOPICAL PATCH TD ONE (19:00)
[2023-05-31] MEDS: MAGNESIUM SULF 50% (8.12 MEQ/2 ML-1 GM VIAL) IVPB ONE (19:35)
[2023-05-31] MEDS: NICOTINE 14 MG/24 HOURS TOPICAL PATCH TD ONE (19:35)
[2023-05-31 21:01] VITALS: BMI 38.5
[2023-05-31] MEDS ORDERED: traZODone HCL 50 MG TABLET (FP) ONE (21:18)
[2023-05-31] MEDS: HEPARIN NA (PORCINE) 5,000 UNITS/ML 1ML VIAL SQ SCH (22:23)
[2023-05-31] MEDS: traZODone HCL 100 MG TABLET (FP) PO SCH (22:23)
[2023-05-31] MEDS: BENZTROPINE MESYLATE 0.5 MG TABLET (FP) PO SCH (22:46)
[2023-06-01 06:57] LABS: BASO % 1.2 % (0-2.0); EOS % 1.9 % (0-4.5); HEMATOCRIT 37.9 % (32.4-45.2); HEMOGLOBIN 12.2 GM/dL (10.7-15.3); MCH 28.3 pg (25.7-33.7); MCHC 32.2 g/dl (32.0-36.0); MEAN CELL VOLUME 87.6 fl (80-96); MEAN PLT VOLUME 9.9 fl (7.5-11.1); MONO % 8.8 % (3.8-10.2); NEUT % 59.1 % (42.8-82.8); PLATELET COUNT 240 10^3/uL (134-434); RBC 4.32 M/mm3 (3.60-5.2); RDW 14.9 % (11.6-15.6); WHITE BLOOD COUNT 6.7 K/mm3 (4.0-10.0)
[2023-06-01 07:13] LABS: POTASSIUM 4.8 mmol/L (3.5-5.1)
[2023-06-01 07:21] LABS: CREATININE 0.7 mg/dL (0.55-1.3)
[2023-06-01] MEDS: methylPREDNISolone NA SUCC 40 MG/1 ML VIAL IVPUSH SCH ×2 (08:19→21:43)
[2023-06-01] MEDS: DULoxetine HCL 30 MG CAPSULE.DR PO SCH (09:59)
[2023-06-01] MEDS: NICOTINE 14 MG/24 HOURS TOPICAL PATCH TD SCH (09:59)
[2023-06-01] MEDS: TOPIRAMATE 100 MG TABLET PO SCH (10:00)
[2023-06-01] MEDS: ARIPiprazole 10 MG TABLET PO SCH (10:01)
[2023-06-01] MEDS: FLUTICASONE/UMECLIDIN/VILANTER(200-62.5-25 TRELEGY ELLIPTA) INAHLER IH SCH (10:40)
[2023-06-01] MEDS: DOXYCYCLINE HYCLATE 100 MG CAPSULE PO SCH (11:44)
[2023-06-01] MEDS ORDERED: INSULIN (NOVOLOG) ASPART 100 UNITS/ML 10ML VIAL ONE ×2 (11:47→17:46)
[2023-06-01] MEDS: INSULIN ASPART SLIDING SCALE (NOVOLOG) 1 VIAL SQ SCH (12:00)
[2023-06-01] MEDS: CEFTRIAXONE 1 GM in DEXTROSE 5%-WATER - 50 ML IVPB SCH (13:38)
[2023-06-01] MEDS: DOXYCYCLINE INJECTION 100 MG in DEXTROSE 5%-WATER 100 ML IVPB SCH (13:41)
[2023-06-01] MEDS ORDERED: methylPREDNISolone NA SUCC 40 MG/1 ML VIAL IVPUSH SCH (18:00)
[2023-06-01] MEDS ORDERED: traZODone HCL 50 MG TABLET (FP) ONE (20:03)
[2023-06-02 08:38] LABS: BASO % 0.2 % (0-2.0); HEMATOCRIT 41.1 % (32.4-45.2); HEMOGLOBIN 13.1 GM/dL (10.7-15.3); LYMPH % 13.6 % (8-40); MCHC 31.8 g/dl (32.0-36.0); MEAN CELL VOLUME 88.2 fl (80-96); MEAN PLT VOLUME 10.5 fl (7.5-11.1); MONO % 2.4 % (3.8-10.2); NEUT % 83.8 % (42.8-82.8); PLATELET COUNT 278 10^3/uL (134-434); RBC 4.66 M/mm3 (3.60-5.2); RDW 14.9 % (11.6-15.6); WHITE BLOOD COUNT 10.7 K/mm3 (4.0-10.0)
[2023-06-02 09:07] LABS: ALBUMIN 3.7 g/dl (3.4-5.0); CALCIUM 10.1 mg/dL (8.5-10.1)
[2023-06-02 09:08] LABS: MAGNESIUM 2.1 mg/dL (1.8-2.4)
[2023-06-02 09:10] LABS: PHOSPHOROUS 3.6 mg/dL (2.5-4.9)
[2023-06-02 09:12] LABS: BILIRUBIN,TOTAL 0.2 mg/dL (0.2-1)
[2023-06-02 09:13] LABS: TOT PROT 8.3 g/dl (6.4-8.2)
[2023-06-02] MEDS: ALBUTEROL SO4 0.083% IH SOL 2.5 MG/3 ML VIAL.NEB. NEB PRN (14:34)
[2023-06-02] MEDS ORDERED: traZODone HCL 50 MG TABLET (FP) ONE (21:21)
[2023-06-03 07:28] LABS: BASO % 0.2 % (0-2.0); HEMATOCRIT 40.6 % (32.4-45.2); LYMPH % 13.8 % (8-40); MCH 28.1 pg (25.7-33.7); MEAN CELL VOLUME 87.8 fl (80-96); MEAN PLT VOLUME 10.4 fl (7.5-11.1); MONO % 5.7 % (3.8-10.2); NEUT % 80.3 % (42.8-82.8); PLATELET COUNT 273 10^3/uL (134-434); RBC 4.62 M/mm3 (3.60-5.2); RDW 15.1 % (11.6-15.6); WHITE BLOOD COUNT 11.3 K/mm3 (4.0-10.0)
[2023-06-03 07:53] LABS: POTASSIUM 5.1 mmol/L (3.5-5.1)
[2023-06-03 08:30] LABS: BLOOD UREA NITROGEN 20.8 mg/dL (7-18); CALCIUM 9.9 mg/dL (8.5-10.1); MAGNESIUM 2.1 mg/dL (1.8-2.4)
[2023-06-03 08:31] LABS: ALBUMIN 3.5 g/dl (3.4-5.0)
[2023-06-03 08:34] LABS: PHOSPHOROUS 2.8 mg/dL (2.5-4.9)
[2023-06-03 08:37] LABS: BILIRUBIN,TOTAL 0.2 mg/dL (0.2-1); TOT PROT 7.8 g/dl (6.4-8.2)
[2023-06-03] MEDS ORDERED: traZODone HCL 50 MG TABLET (FP) ONE (21:10)
[2023-06-04 08:30] LABS: BASO % 0.3 % (0-2.0); EOS % 0.1 % (0-4.5); HEMATOCRIT 40.8 % (32.4-45.2); HEMOGLOBIN 13.2 GM/dL (10.7-15.3); LYMPH % 17.8 % (8-40); MCH 28.7 pg (25.7-33.7); MCHC 32.3 g/dl (32.0-36.0); MEAN CELL VOLUME 88.8 fl (80-96); MEAN PLT VOLUME 10.6 fl (7.5-11.1); MONO % 4.3 % (3.8-10.2); NEUT % 77.5 % (42.8-82.8); PLATELET COUNT 267 10^3/uL (134-434); RDW 15.1 % (11.6-15.6); WHITE BLOOD COUNT 9.6 K/mm3 (4.0-10.0)
[2023-06-04 08:33] LABS: CALCIUM 9.1 mg/dL (8.5-10.1)
[2023-06-04 08:34] LABS: ALBUMIN 3.3 g/dl (3.4-5.0); BLOOD UREA NITROGEN 19.9 mg/dL (7-18); MAGNESIUM 2.1 mg/dL (1.8-2.4)
[2023-06-04 08:37] LABS: CREATININE 0.9 mg/dL (0.55-1.3); PHOSPHOROUS 3.3 mg/dL (2.5-4.9)
[2023-06-04 08:38] LABS: BILIRUBIN,TOTAL 0.2 mg/dL (0.2-1); TOT PROT 7.5 g/dl (6.4-8.2)
[2023-06-04 08:54] LABS: N-TERMINAL BNP 36.4 pg/ml (5-125)
[2023-06-04] MEDS ORDERED: traZODone HCL 50 MG TABLET (FP) ONE (20:52)
[2023-06-05] MEDS: ACETAMINOPHEN 325 MG TABLET (FP) PO ONE (11:31)
[2023-06-05] MEDS: ACETAMINOPHEN 1000 MG/100 ML BAG IVPB ONE (19:05)
[2023-06-05] MEDS: SENNOSIDES 8.8 MG/5 ML SYRUP PO SCH (20:50)
[2023-06-05] MEDS: POLYETHYLENE GLYCOL (HEALTHYLAX) 3350 17 GM PACKET PO SCH (20:55)
[2023-06-05] MEDS: MAG HYDROX/AL HYDROX/SIMETH 30 ML UNIT-DOSE CUP PO ONE (21:52)
[2023-06-05] MEDS: methylPREDNISolone NA SUCC 40 MG/1 ML VIAL IVPUSH SCH (21:52)
[2023-06-05] MEDS: ROSUVASTATIN CA 5 MG TABLET PO SCH (21:52)
[2023-06-05] MEDS: traZODone HCL 100 MG TABLET (FP) PO SCH (21:52)
[2023-06-05] MEDS: DOXYCYCLINE INJECTION 100 MG in DEXTROSE 5%-WATER 100 ML IVPB SCH (21:59)
[2023-06-05] MEDS: INSULIN ASPART SLIDING SCALE (NOVOLOG) 1 VIAL SQ SCH (22:01)
[2023-06-05] MEDS: HEPARIN NA (PORCINE) 5,000 UNITS/ML 1ML VIAL SQ SCH (22:02)
[2023-06-05] MEDS: BENZTROPINE MESYLATE 0.5 MG TABLET (FP) PO SCH (22:05)
[2023-06-06 09:09] LABS: HEMATOCRIT 41.6 % (32.4-45.2); HEMOGLOBIN 13.4 GM/dL (10.7-15.3); MCH 28.2 pg (25.7-33.7); MCHC 32.3 g/dl (32.0-36.0); MEAN CELL VOLUME 87.4 fl (80-96); PLATELET COUNT 277 10^3/uL (134-434); RBC 4.76 M/mm3 (3.60-5.2); RDW 14.9 % (11.6-15.6); WHITE BLOOD COUNT 10.9 K/mm3 (4.0-10.0)
[2023-06-06 09:10] LABS: MEAN PLT VOLUME 10.5 fl (7.5-11.1)
[2023-06-06 09:19] LABS: POTASSIUM 4.3 mmol/L (3.5-5.1)
[2023-06-06 09:24] LABS: CALCIUM 9.5 mg/dL (8.5-10.1)
[2023-06-06 09:25] LABS: ALBUMIN 3.4 g/dl (3.4-5.0); BLOOD UREA NITROGEN 19.4 mg/dL (7-18)
[2023-06-06 09:29] LABS: BILIRUBIN,TOTAL 0.3 mg/dL (0.2-1); TOT PROT 7.3 g/dl (6.4-8.2)
[2023-06-06] MEDS ORDERED: predniSONE 20 MG TABLET (UD) PO SCH (10:00)
[2023-06-06] MEDS: TOPIRAMATE 100 MG TABLET PO SCH (10:40)
[2023-06-06] MEDS: predniSONE 20 MG TABLET (UD) PO SCH (10:40)
[2023-06-06] MEDS: DULoxetine HCL 30 MG CAPSULE.DR PO SCH (10:40)
[2023-06-06] MEDS: CEFTRIAXONE 1 GM in DEXTROSE 5%-WATER - 50 ML IVPB SCH (10:43)
[2023-06-06] MEDS: NICOTINE 14 MG/24 HOURS TOPICAL PATCH TD SCH (10:46)
[2023-06-06] MEDS: FLUTICASONE/UMECLIDIN/VILANTER(200-62.5-25 TRELEGY ELLIPTA) INAHLER IH SCH (10:47)
[2023-06-06] MEDS: ARIPiprazole 10 MG TABLET PO SCH (10:47)
[2023-06-06] MEDS ORDERED: NICOTINE POLACRILEX 4 MG GUM BUC PRN (14:07)
[2023-06-06] MEDS ORDERED: DOCUSATE NA 100 MG/10 ML UNIT-DOSE CUPS PO PRN (14:07)
[2023-06-06] MEDS ORDERED: NICOTINE 21 MG/24 HOURS TOPICAL PATCH TD SCH (14:15)
[2023-06-06] MEDS: DOCUSATE NA 100 MG/10 ML UNIT-DOSE CUPS PO SCH (16:23)
[2023-06-06] MEDS: LIDOCAINE 4% PATCH TP SCH (18:06)
[2023-06-06] MEDS: INSULIN (LEVEMIR) 100 UNITS/ML UNITS SQ SCH (21:55)
[2023-06-06] MEDS: ROSUVASTATIN CA 20 MG TABLET PO SCH (21:55)
[2023-06-06] MEDS: LIDOCAINE PATCH REMOVAL MC SCH (22:45)
[2023-06-07 10:15] LABS: HEMATOCRIT 41.2 % (32.4-45.2); HEMOGLOBIN 13.4 GM/dL (10.7-15.3); MCH 28.2 pg (25.7-33.7); MCHC 32.5 g/dl (32.0-36.0); MEAN PLT VOLUME 10.5 fl (7.5-11.1); PLATELET COUNT 225 10^3/uL (134-434); RBC 4.74 M/mm3 (3.60-5.2); RDW 14.8 % (11.6-15.6); WHITE BLOOD COUNT 10.8 K/mm3 (4.0-10.0)
[2023-06-07] MEDS: ACETAMINOPHEN 500 MG TABLET (FP) PO ONE (10:27)
[2023-06-07 10:30] LABS: POTASSIUM 4.1 mmol/L (3.5-5.1)
[2023-06-07 10:38] LABS: PHOSPHOROUS 2.4 mg/dL (2.5-4.9)
[2023-06-07 10:39] LABS: ALBUMIN 3.3 g/dl (3.4-5.0); BILIRUBIN,TOTAL 0.2 mg/dL (0.2-1); TOT PROT 6.8 g/dl (6.4-8.2)
[2023-06-07 10:42] LABS: MAGNESIUM 2.1 mg/dL (1.8-2.4)
[2023-06-07] MEDS ORDERED: MAG HYDROX/AL HYDROX/SIMETH 30 ML UNIT-DOSE CUP PO PRN (11:25)
[2023-06-07] MEDS: INSULIN ASPART SLIDING SCALE (NOVOLOG) 1 VIAL SQ SCH (11:48)
[2023-06-07] MEDS: FAMOTIDINE 20 MG/50 ML IVPB 20 MG/50 ML MG IVPB ONE (12:56)
[2023-06-07] MEDS: KETOROLAC TROMETHAMINE 15 MG/ML VIAL IVPUSH ONE (13:10)
[2023-06-07] MEDS: NAPH,MB-DB/K PH,MBDB POWDER PACKET PO ONE (15:52)
[2023-06-07] MEDS: INSULIN (LEVEMIR) 100 UNITS/ML UNITS SQ SCH (21:23)
[2023-06-07] MEDS: ACETAMINOPHEN 325 MG TABLET (FP) PO PRN (21:25)
[2023-06-08 10:15] LABS: HEMATOCRIT 39.6 % (32.4-45.2); HEMOGLOBIN 12.4 GM/dL (10.7-15.3); MCH 27.6 pg (25.7-33.7); MCHC 31.4 g/dl (32.0-36.0); MEAN CELL VOLUME 87.7 fl (80-96); MEAN PLT VOLUME 10.1 fl (7.5-11.1); PLATELET COUNT 223 10^3/uL (134-434); RBC 4.51 M/mm3 (3.60-5.2); RDW 14.9 % (11.6-15.6); WHITE BLOOD COUNT 11.9 K/mm3 (4.0-10.0)
[2023-06-08 10:33] LABS: POTASSIUM 3.7 mmol/L (3.5-5.1)
[2023-06-08] MEDS: DOXYCYCLINE HYCLATE 100 MG CAPSULE PO SCH (10:45)
[2023-06-08 10:46] LABS: PHOSPHOROUS 2.6 mg/dL (2.5-4.9)
[2023-06-08 10:47] LABS: BILIRUBIN,TOTAL 0.2 mg/dL (0.2-1); TOT PROT 6.6 g/dl (6.4-8.2)
[2023-06-08 10:49] LABS: ALBUMIN 2.9 g/dl (3.4-5.0); BLOOD UREA NITROGEN 19.3 mg/dL (7-18)
[2023-06-08 10:51] LABS: MAGNESIUM 2.1 mg/dL (1.8-2.4)
[2023-06-08 10:52] LABS: CREATININE 0.9 mg/dL (0.55-1.3)
[2023-06-08] MEDS ORDERED: INSULIN ASPART SLIDING SCALE (NOVOLOG) 1 VIAL SQ ONE (11:04)
[2023-06-08] MEDS: INSULIN (LEVEMIR) 100 UNITS/ML UNITS SQ SCH (21:39)
[2023-06-09 08:24] LABS: POTASSIUM 4.2 mmol/L (3.5-5.1)
[2023-06-09 08:26] LABS: CALCIUM 8.8 mg/dL (8.5-10.1)
[2023-06-09 08:27] LABS: ALBUMIN 3.1 g/dl (3.4-5.0); BLOOD UREA NITROGEN 20.4 mg/dL (7-18)
[2023-06-09 08:30] LABS: CREATININE 0.8 mg/dL (0.55-1.3); PHOSPHOROUS 3.4 mg/dL (2.5-4.9)
[2023-06-09 08:32] LABS: BILIRUBIN,TOTAL 0.4 mg/dL (0.2-1); TOT PROT 6.5 g/dl (6.4-8.2)
[2023-06-09 08:36] LABS: HEMATOCRIT 40.2 % (32.4-45.2); HEMOGLOBIN 12.9 GM/dL (10.7-15.3); MCH 28.3 pg (25.7-33.7); MCHC 32.1 g/dl (32.0-36.0); MEAN CELL VOLUME 88.1 fl (80-96); MEAN PLT VOLUME 10.4 fl (7.5-11.1); PLATELET COUNT 223 10^3/uL (134-434); RBC 4.56 M/mm3 (3.60-5.2); RDW 14.6 % (11.6-15.6); WHITE BLOOD COUNT 10.3 K/mm3 (4.0-10.0)
[2023-06-09] MEDS: ACETAMINOPHEN 325 MG TABLET (FP) PO SCH (10:25)
[2023-06-09] MEDS: LEVOTHYROXINE NA 75 MCG TABLET (FP) PO SCH (11:57)
[2023-06-09] MEDS: ALBUTEROL SO4 0.083% IH SOL 2.5 MG/3 ML VIAL.NEB. NEB PRN (20:20)
[2023-06-10 11:19] VITALS: BP 114/63; PULSE 96; RESP 18; TEMP 98.4
== END 2023-06-10 14:19 | disposition home or self-care (01) | DRG 140 ==
LOC: JER 13:05 → JERBED 17:56 → J4W 20:24 → OBSVTOIN 06-01 09:06 → J6S 06-05 16:24
PROVIDERS: ADMIT Internal Medicine; ATTEND Internal Medicine
DX: J44.1 Chronic obstructive pulmonary disease with (acute) exacerbation (principal); R91.1 Solitary pulmonary nodule; F41.9 Anxiety disorder, unspecified; J96.01 Acute respiratory failure with hypoxia; D64.9 Anemia, unspecified; I10 Essential (primary) hypertension; F32.A Depression, unspecified; R07.89 Other chest pain; E11.65 Type 2 diabetes mellitus with hyperglycemia; J45.21 Mild intermittent asthma with (acute) exacerbation; F17.210 Nicotine dependence, cigarettes, uncomplicated; J84.9 Interstitial pulmonary disease, unspecified; K59.00 Constipation, unspecified; R04.2 Hemoptysis
CPT/HCPCS: 0241U-QW; 36415; 71045-TC-FY; 71250-TC; 80048; 80053; 80061; 82803; 82962; 83036; 83735; 83880; 84100; 84439; 84443; 84484; 85025; 85027; 85610; 85730; 87070; 87205; 93005; 93010; 93306-TC; 94640; 94761; 97116-GP; 97162-GP; 99285-25; G0378; J0131; J1644

== ENCOUNTER 2023-07-01 07:45 | Emergency (ER) | payer OTHER ==
[2023-07-01 08:20] VITALS: BMI 37.8
[2023-07-01] MEDS ORDERED: ACETAMINOPHEN 325 MG TABLET (FP) ONE (09:52)
[2023-07-01] MEDS: ACETAMINOPHEN 500 MG TABLET (FP) PO ONE (09:55)
[2023-07-01] MEDS ORDERED: ALBUTEROL SO4 HFA INHALER IH ONE (13:02)
[2023-07-01] MEDS: ALBUTEROL SO4 HFA INHALER IH ONE (13:05)
[2023-07-01 13:48] VITALS: BP 153/72; PULSE 84; RESP 20; TEMP 97.2
== END 2023-07-01 14:29 | disposition home or self-care (01) ==
LOC: JER 07:45
DX: M25.561 Pain in right knee (principal); M25.562 Pain in left knee; W01.0XXA Fall on same level from slipping, tripping and stumbling without subsequent striking against object, initial encounter
CPT/HCPCS: 73562-TC-LT-FY; 73562-TC-RT-FY; 73610-TC-LT-FY; 73630-TC-LT; 82962; 99284-25

== ENCOUNTER 2024-05-16 11:26 | Inpatient (IN) | payer OTHER ==
[2024-05-16 12:02] VITALS: TEMP 97.7; BMI 36.0
[2024-05-16] MEDS ORDERED: MAGNESIUM SULFATE IN WATER 2 GM/50 ML IVPB IVPB ONE (12:45)
[2024-05-16] MEDS ORDERED: DEXAMETHASONE SOD PHOSPHATE 10 MG/1 ML VIAL ONE (12:45)
[2024-05-16] MEDS ORDERED: ALBUTEROL SO4 0.083% IH SOL 2.5 MG/3 ML VIAL.NEB. NEB ONE (12:49)
[2024-05-16] MEDS: SODIUM CHLORIDE 0.9% 1000 ML INFUS.BAG IV ONE (13:00)
[2024-05-16] MEDS: ALBUTEROL SO4 0.083% IH SOL 2.5 MG/3 ML VIAL.NEB. NEB PRN (13:00)
[2024-05-16] MEDS: DEXAMETHASONE SOD PHOSPHATE 10 MG/1 ML VIAL IVPUSH ONE (13:00)
[2024-05-16 13:10] LABS: VENOUS BASE EXCESS -2.8 mmol/L (-2-2); VENOUS O2 SATURATION 83.6 % (70-80); VENOUS PCO2 42.2 mmHg (38-52); VENOUS PH 7.349 (7.310-7.410)
[2024-05-16 13:11] LABS: ABSOLUTE IMMATURE GRANULOCYTES 0.03 x10^3/uL (0.0-0.031); BASOPHILS # 0.06 x10^3/uL (0.01-0.08); EOSINOPHIL % 2.5 % (0.7-5.8); EOSINOPHILS # 0.24 x10^3/uL (0.04-0.36); HEMATOCRIT 44.3 % (34.1-44.9); HEMOGLOBIN 14.1 g/dL (11.2-15.7); MCHC 31.8 g/dl (32.2-35.5); MEAN CELL VOLUME 87.2 fl (79.4-94.8); MEAN PLT VOLUME 12.9 fl (9.4-12.3); MONOCYTE # 0.61 x10^3/uL (0.24-0.86); MONOCYTE % 6.5 % (4.7-12.5); PLATELET COUNT # 247 x10^3/uL (182-369); RDW 13.9 % (12.3-16.6)
[2024-05-16 13:26] LABS: POTASSIUM 4.4 mmol/L (3.5-5.1)
[2024-05-16 13:28] LABS: ALBUMIN 3.7 g/dl (3.4-5.0); CALCIUM 9.2 mg/dL (8.5-10.1)
[2024-05-16 13:29] LABS: BLOOD UREA NITROGEN 15.1 mg/dL (7-18)
[2024-05-16 13:32] LABS: CREATININE 0.9 mg/dL (0.55-1.3)
[2024-05-16 13:34] LABS: BILIRUBIN,TOTAL 0.2 mg/dL (0.2-1); TOT PROT 7.7 g/dl (6.4-8.2)
[2024-05-16] MEDS: MAGNESIUM SULF 50% (8.12 MEQ/2 ML-1 GM VIAL) IVPB ONE (13:46)
[2024-05-16] MEDS ORDERED: ACETAMINOPHEN 325 MG TABLET (FP) ONE (14:09)
[2024-05-16] MEDS ORDERED: CEFTRIAXONE 1 G/50 ML PREMIX 50 ML IVPB ONE (14:10)
[2024-05-16] MEDS: ACETAMINOPHEN 500 MG TABLET (FP) PO ONE (14:22)
[2024-05-16] MEDS: CEFTRIAXONE 1 GM in DEXTROSE 5%-WATER - 100 ML IVPB ONE (14:22)
[2024-05-16] MEDS ORDERED: DOXYCYCLINE HYCLATE 100 MG VIAL ONE (14:26)
[2024-05-16 14:52] VITALS: BP 138/68; PULSE 91; RESP 20
[2024-05-16] MEDS: DOXYCYCLINE INJECTION 100 MG in DEXTROSE 5%-WATER 100 ML IVPB ONE (14:53)
[2024-05-16] MEDS: ALBUTEROL SO4 2.5/IPRATROPIUM 0.5 INH SOL 3 ML VIAL.NEB. NEB SCH (15:59)
[2024-05-16] MEDS ORDERED: POLYETHYLENE GLYCOL (HEALTHYLAX) 3350 17 GM PACKET PO PRN (18:34)
[2024-05-16] MEDS ORDERED: methylPREDNISolone NA SUCC 40 MG/1 ML VIAL ONE (19:00)
[2024-05-16] MEDS ORDERED: ALBUTEROL SO4 2.5/IPRATROPIUM 0.5 INH SOL 3 ML VIAL.NEB. NEB SCH (20:00)
[2024-05-16] MEDS: methylPREDNISolone NA SUCC 40 MG/1 ML VIAL IVPUSH SCH (20:40)
[2024-05-16] MEDS ORDERED: ROSUVASTATIN CA 20 MG TABLET PO SCH (22:00)
[2024-05-16] MEDS ORDERED: BENZTROPINE MESYLATE 0.5 MG TABLET (FP) PO SCH (22:00)
[2024-05-17] MEDS ORDERED: NICOTINE 21 MG/24 HOURS TOPICAL PATCH TD SCH (10:00)
[2024-05-17] MEDS ORDERED: FLUTICASONE/UMECLIDIN/VILANTER(200-62.5-25 TRELEGY ELLIPTA) INAHLER IH SCH (10:00)
[2024-05-17] MEDS ORDERED: DULoxetine HCL 20 MG CAPSULE.DR PO SCH (10:00)
[2024-05-17] MEDS ORDERED: ARIPiprazole 10 MG TABLET PO SCH (10:00)
[2024-05-17] MEDS ORDERED: TOPIRAMATE 100 MG TABLET PO SCH (10:00)
== END 2024-05-16 20:00 | disposition left against medical advice (07) | DRG 203 ==
LOC: JER 11:26 → JERBED 15:53
PROVIDERS: ADMIT Internal Medicine; ATTEND Internal Medicine
DX: R07.9 Chest pain, unspecified (principal); I10 Essential (primary) hypertension; F17.210 Nicotine dependence, cigarettes, uncomplicated; J44.9 Chronic obstructive pulmonary disease, unspecified; J45.909 Unspecified asthma, uncomplicated
CPT/HCPCS: 0241U-QW; 36415; 71045-TC-FY; 71250-TC; 80053; 82010; 82550; 82803; 84484; 85025; 93005; 93010; 99285-25; J1100

== ENCOUNTER 2024-05-17 21:11 | Observation (INO) | payer OTHER ==
[2024-05-17] MEDS ORDERED: ALBUTEROL SO4 2.5/IPRATROPIUM 0.5 INH SOL 3 ML VIAL.NEB. NEB ONE ×2 (22:25→22:48)
[2024-05-17 22:33] LABS: PH,URINE 5.5 (5.0-8.0); URINE APPEARANCE CLEAR; URINE BILIRUBIN NEGATIVE (NEGATIVE); URINE COLOR YELLOW; URINE GLUCOSE (UA) 3+ (NEGATIVE); URINE KETONE NEGATIVE (NEGATIVE); URINE LEUK ESTERASE NEGATIVE (NEGATIVE); URINE NITRITE NEGATIVE (NEGATIVE); URINE PROTEIN NEGATIVE (NEGATIVE); URINE UROBILINOGEN 0.2 mg/dL (0.2-1.0)
[2024-05-17] MEDS: ALBUTEROL SO4 2.5/IPRATROPIUM 0.5 INH SOL 3 ML VIAL.NEB. NEB SCH (22:33)
[2024-05-17 22:49] LABS: HEMATOCRIT 42.5 % (34.1-44.9); HEMOGLOBIN 13.5 g/dL (11.2-15.7); MCHC 31.8 g/dl (32.2-35.5); MEAN CELL VOLUME 86.9 fl (79.4-94.8); MEAN PLT VOLUME 12.9 fl (9.4-12.3); PLATELET COUNT # 241 x10^3/uL (182-369); RDW 13.8 % (12.3-16.6)
[2024-05-17 22:53] LABS: VENOUS BASE EXCESS -1.9 mmol/L (-2-2); VENOUS O2 SATURATION 37.7 % (70-80); VENOUS PCO2 46.7 mmHg (38-52); VENOUS PH 7.334 (7.310-7.410)
[2024-05-17 22:57] LABS: INR 1.01 (0.83-1.09); PROTHROMBIN TIME (PATIENT) 11.1 SEC (9.7-13.0)
[2024-05-17] MEDS: SODIUM CHLORIDE 0.9% 500 ML INFUS.BAG IV ONE (23:11)
[2024-05-17 23:17] LABS: CHLORIDE 95 mmol/L (98-107); POTASSIUM 4.2 mmol/L (3.5-5.1); SODIUM 130 mmol/L (136-145)
[2024-05-17 23:19] LABS: ALBUMIN 3.9 g/dl (3.4-5.0); ANION GAP 8 mmol/L (4-13); BLOOD UREA NITROGEN 18.7 mg/dL (7-18); CALCIUM 9.6 mg/dL (8.5-10.1); CO2 27 mmol/L (21-32)
[2024-05-17 23:22] LABS: CREATININE 1.2 mg/dL (0.55-1.3); SGOT/AST 10 U/L (15-37); SGPT/ALT 25 U/L (13-61)
[2024-05-17 23:23] LABS: PHOSPHOROUS 3.7 mg/dL (2.5-4.9)
[2024-05-17 23:24] LABS: BILIRUBIN,TOTAL 0.3 mg/dL (0.2-1); TOT PROT 7.9 g/dl (6.4-8.2)
[2024-05-17 23:25] LABS: ALK PHOS 155 U/L (45-117)
[2024-05-17 23:53] LABS: GLUCOSE,RANDOM 475 mg/dL (74-106); LACTIC ACID 2.2 mmol/L (0.4-2.0)
[2024-05-18] MEDS: INSULIN (NOVOLOG) ASPART 100 UNITS/ML 10ML VIAL SQ ONE (00:44)
[2024-05-18] MEDS ORDERED: DOCUSATE SODIUM 100 MG CAPSULE (FP) PO PRN (01:30)
[2024-05-18] MEDS ORDERED: ALBUTEROL SO4 0.083% IH SOL 2.5 MG/3 ML VIAL.NEB. NEB PRN (01:30)
[2024-05-18 02:23] VITALS: BMI 39.0
[2024-05-18] MEDS ORDERED: NICOTINE POLACRILEX 2 MG GUM BUC PRN (03:21)
[2024-05-18] MEDS ORDERED: METHYL SALICYLATE/MENTHOL 30 GM TUBE TP PRN (03:37)
[2024-05-18] MEDS ORDERED: POLYETHYLENE GLYCOL (HEALTHYLAX) 3350 17 GM PACKET PO PRN (03:42)
[2024-05-18] MEDS: INSULIN ASPART SLIDING SCALE (NOVOLOG) 1 VIAL SQ SCH ×2 (06:33→11:52)
[2024-05-18] MEDS: ALBUTEROL SO4 2.5/IPRATROPIUM 0.5 INH SOL 3 ML VIAL.NEB. NEB SCH (07:28)
[2024-05-18 09:47] LABS: ABSOLUTE IMMATURE GRANULOCYTES 0.03 x10^3/uL (0.0-0.031); BASOPHILS # 0.05 x10^3/uL (0.01-0.08); EOSINOPHIL % 0.6 % (0.7-5.8); EOSINOPHILS # 0.06 x10^3/uL (0.04-0.36); HEMATOCRIT 40.9 % (34.1-44.9); MCHC 31.8 g/dl (32.2-35.5); MEAN CELL VOLUME 86.5 fl (79.4-94.8); MEAN PLT VOLUME 13.1 fl (9.4-12.3); MONOCYTE # 0.66 x10^3/uL (0.24-0.86); MONOCYTE % 6.4 % (4.7-12.5); PLATELET COUNT # 252 x10^3/uL (182-369); RDW 13.8 % (12.3-16.6)
[2024-05-18 10:13] LABS: POTASSIUM 3.7 mmol/L (3.5-5.1)
[2024-05-18 10:15] LABS: BLOOD UREA NITROGEN 13.6 mg/dL (7-18)
[2024-05-18 10:18] LABS: CREATININE 0.9 mg/dL (0.55-1.3); PHOSPHOROUS 3.5 mg/dL (2.5-4.9)
[2024-05-18] MEDS: ARIPiprazole 10 MG TABLET PO SCH (10:29)
[2024-05-18] MEDS: INSULIN GLARGINE (LANTUS) 100 UNITS/ML UNITS SQ SCH (10:30)
[2024-05-18] MEDS: LIDOCAINE 4% PATCH TP SCH (10:30)
[2024-05-18] MEDS: TOPIRAMATE 100 MG TABLET PO SCH (10:31)
[2024-05-18] MEDS: NICOTINE 21 MG/24 HOURS TOPICAL PATCH TD SCH (10:31)
[2024-05-18] MEDS: DULoxetine HCL 30 MG CAPSULE.DR PO SCH (10:31)
[2024-05-18] MEDS ORDERED: ONDANSETRON *ODT* 4 MG TABLET SL PRN (14:47)
[2024-05-18 17:05] VITALS: BP 130/66; PULSE 93; RESP 18; TEMP 98.6
[2024-05-18] MEDS ORDERED: traZODone HCL 100 MG TABLET (FP) PO SCH (22:00)
[2024-05-18] MEDS ORDERED: LIDOCAINE PATCH REMOVAL MC SCH (22:00)
[2024-05-18] MEDS ORDERED: BENZTROPINE MESYLATE 0.5 MG TABLET (FP) PO SCH (22:00)
[2024-05-19] MEDS ORDERED: HEPARIN NA (PORCINE) 5,000 UNITS/ML 1ML VIAL SQ SCH (14:00)
== END 2024-05-18 18:01 | disposition home health service (06) ==
LOC: JER 21:11 → JERBED 05-18 00:07 → J5S 05-18 01:57
PROVIDERS: ADMIT Hospitalist; ATTEND Family Medicine
PROC: 3E0F7GC Introduction of Other Therapeutic Substance into Respiratory Tract, Via Natural or Artificial Opening (ICD-10-PCS; principal; 2024-05-18)
PROC: 3E013VG Introduction of Insulin into Subcutaneous Tissue, Percutaneous Approach (ICD-10-PCS; 2024-05-18)
PROC: 3E0337Z Introduction of Electrolytic and Water Balance Substance into Peripheral Vein, Percutaneous Approach (ICD-10-PCS; 2024-05-18)
DX: E11.65 Type 2 diabetes mellitus with hyperglycemia (principal); E87.1 Hypo-osmolality and hyponatremia; E86.0 Dehydration; R07.89 Other chest pain; F31.9 Bipolar disorder, unspecified; R07.9 Chest pain, unspecified; J45.909 Unspecified asthma, uncomplicated; K80.20 Calculus of gallbladder without cholecystitis without obstruction; Z90.49 Acquired absence of other specified parts of digestive tract; F17.210 Nicotine dependence, cigarettes, uncomplicated
CPT/HCPCS: 36415; 71045-TC-FY; 80048; 80053; 81003; 82010; 82550; 82553; 82803; 82962; 83036; 83605; 83735; 84100; 84484; 85025; 85610; 85730; 87086; 93005; 93010; 94640; 96372; 99285-25; G0378